=== PATIENT | female | born 2000 | race Caucasian/White ===

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

== ENCOUNTER 2021-02-04 11:26 | Emergency (ER) | payer BC, OTHER ==
[2021-02-04 11:31] VITALS: RESP 18; TEMP 98.1
[2021-02-04] MEDS ORDERED: KETOROLAC 15 MG/ML 1 ML VIAL IM STA (11:52)
--- NOTE | 2021-02-04 12:22 | XR ---
EXAMINATION TYPE: XR hand complete LT DATE OF EXAM: 02/04/2021 CLINICAL HISTORY: Anterior pain and swelling after dog bite injury TECHNIQUE: Frontal, lateral and oblique images of the left hand are obtained. COMPARISON: None. FINDINGS: There is no acute fracture/dislocation evident in the left hand. The joint spaces in the l eft hand appear within normal limits. On the oblique image there is density between the mid shaft of the second and third metacarpals could reflect soft tissue foreign body, this is not as well identifi ed on additional views. Correlate clinically. IMPRESSION: As above.
[2021-02-04] MEDS ORDERED: BACITRACIN OINT 1 EACH PACKET TOPICAL ONE (12:40)
--- NOTE | 2021-02-04 12:40 | ED ---
Animal Bite HPI - General Chief Complaint: Animal Bite Stated Complaint: [facility]-dog bite Time Seen by Provider: 02/04/21 11:45 Source: patient Mode of arrival: ambulatory Limitations: no limitations - History of Present Illness Initial Comments: Patient is a 20-year-old female presenting to the emergency department for a dog bite wound. 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 She is up-to-date with her tetanus shot, the dog has been put down, however the dog did have updated rabies vaccine on file. Patient has no further complaints at this time. - Related Data Home Medications Medication Instructions Recorded Confirmed Ferrous Sulfate [Feosol] 325 mg PO HS 11/28/18 12/26/19 Venlafaxine HCl [Effexor XR] 75 mg PO HS 11/28/18 12/26/19 Cetirizine HCl [Zyrtec] 10 mg PO HS 12/17/19 12/26/19 Phentermine HCl [Adipex-P] 37.5 mg PO DAILY 12/17/19 12/26/19 metFORMIN HCL ER [Glucophage Xr] 1,000 mg PO HS 12/17/19 12/26/19 Albuterol Sulfate [Proair Hfa] 1 - 2 puff INHALATION Q6HR PRN 12/26/19 12/26/19 Ketorolac [Toradol] 10 mg PO Q8HR PRN 12/26/19 12/26/19 traMADol HCL [Ultram] 50 mg PO Q8HR PRN 12/26/19 12/26/19 Previous Rx's Medication Instructions Recorded Dicyclomine [Bentyl] 20 mg PO TID #30 tablet 12/22/19 Ondansetron Odt [Zofran Odt] 4 mg PO Q8HR PRN #10 tab 12/22/19 Docusate [Colace] 100 mg PO BID #20 capsule 12/29/19 HYDROcodone/APAP 5-325MG [[place] 1 tab PO Q6HR PRN #10 tab 12/29/19 5-325] Doxycycline Monohydrate [Monodox] 100 mg PO BID 7 Days #14 cap 02/04/21 Ketorolac [Toradol] 10 mg PO Q8HR #10 tab 02/04/21 Allergies Allergy/AdvReac Type Severity Reaction Status Date / Time cephalexin [From Keflex] Allergy Rash/Hives Verified 02/04/21 11:30 Penicillins Allergy Rash/Hives Verified 02/04/21 11:30 latex AdvReac Mild Itching Verified 02/04/21 11:30 adhesive tape AdvReac PAPER & Verified 02/04/21 11:30 PLASTIC IRRITATE SKIN AND ADHESIVE PEELS SKIN. Review of Systems ROS Statement: Those systems with pertinent positive or pertinent negative responses have been documented in the HPI. ROS Other: All systems not noted in ROS Statement are negative. Past Medical History Additional Past Medical History / Comment(s): PCOS, MENSTRUAL PERIODS HEAVY AND PAINFUL, "MILD ASTHMA", CHRONIC BACK PAIN-SEES CHIROPRACTOR., ANEMIA. , STATES HAVING DIARRHEA, NAUSEA AND ABD PAIN. History of Any Multi-Drug Resistant Organisms: None Reported Past Surgical History: Orthopedic Surgery Additional Past Surgical History / Comment(s): bone removed from ankle (10 or 11 yrs old) Past Anesthesia/Blood Transfusion Reactions: No Reported Reaction, Motion Sickness Additional Past Anesthesia/Blood Transfusion Reaction / Comment(s): RARE MOTION SICKNESS Past Psychological History: Anxiety Smoking Status: Never smoker Past Alcohol Use History: None Reported Past Drug Use History: None Reported - Past Family History Mother Family Medical History: No Reported History General Exam - General Exam Comments Initial Comments: GENERAL: Patient is well-developed and well-nourished. Patient is nontoxic and in no acute distress. HEAD: Atraumatic, normocephalic. EYES: Pupils equal round and reactive to light, extraocular movements intact, sclera anicteric, conjunctiva are normal. Eyelids were unremarkable. ENT: TMs normal, nares patent, oropharynx clear without exudates. Moist mucous membranes. NECK: Normal range of motion, supple without lymphadenopathy or JVD. LUNGS: Unlabored respirations. Breath sounds clear to auscultation bilaterally and equal. No wheezes rales or rhonchi. HEART: Regular rate and rhythm without murmurs, rubs or gallops. ABDOMEN: Soft, nontender, normoactive bowel sounds. No guarding, no rebound. No masses appreciated. : Deferred MUSCULOSKELETAL: Normal extremities with adequate strength and normal range of motion, no pitting or edema. No clubbing or cyanosis. NEUROLOGICAL: Patient is alert and oriented x 3. Motor and sensory are also intact. Cranial nerves II through XII grossly intact. Symmetrical smile. Normal speech, normal gait. PSYCH: Normal mood, normal affect. SKIN: Warm, Dry, normal turgor, no rashes. Patient has a 0.5cm puncture wound on her left hand, palmar aspect. This is not gaping, no sutures required. Patient also has a small superficial 1cm abrasion to the right index finger. There is no active bleeding at this time. Limitations: no limitations Course Vital Signs 02/04/21 02/04/21 11:28 13:11 Temperature 98.1 F Pulse Rate 88 76 Respiratory 18 18 Rate Blood Pressure 149/101 121/78 O2 Sat by Pulse 100 100 Oximetry Medical Decision Making - Medical Decision Making Patient is a 20-year-old female here after a dog bite to her left hand as well as her right hand. Patient has a 0.5 cm puncture wound on her left hand, palmar aspect. This is not requiring sutures, no active bleeding. She also has a small superficial abrasion to the right index finger, about one centimeters in length. She is tetanus vaccine is up-to-date, the dog's rabies were up-to-date as well. Patient's wound was cleaned, bandaged with topical antibiotic. I will start patient on doxycycline and also give her some Toradol. We discussed wound care. Patient is stable for discharge. Patient is in agreement with this plan of care. Return parameters were discussed with the patient and they verbalized understanding. Case discussed with Dr. Espinoza. Disposition Clinical Impression: Dog bite, Dog bite of left hand Disposition: HOME SELF-CARE Condition: Stable Instructions (If sedation given, give patient instructions): Animal Bite (ED) Additional Instructions: Please return to the Emergency Department if symptoms worsen or any other concerns. Wound clean and dry as discussed. Apply topical antibiotic twice daily. Take oral antibiotics as prescribed, may also take Toradol for severe pain. Follow-up with your regular doctor as needed. Prescriptions: Doxycycline Monohydrate [Monodox] 100 mg PO BID 7 Days #14 cap Ketorolac [Toradol] 10 mg PO Q8HR #10 tab Is patient prescribed a controlled substance at d/c from ED?: No Referrals: Nalini Graves DO [Primary Care Provider] - 1-2 days
[2021-02-04 13:12] VITALS: BP 121/78; PULSE 76
== END 2021-02-04 13:19 | disposition home or self-care (01) ==
LOC: EC 11:26
DX: S61.432A Puncture wound without foreign body of left hand, initial encounter (principal); S60.410A Abrasion of right index finger, initial encounter; F41.9 Anxiety disorder, unspecified; Z79.84 Long term (current) use of oral hypoglycemic drugs; Z79.899 Other long term (current) drug therapy; Z88.0 Allergy status to penicillin; Z88.1 Allergy status to other antibiotic agents; Z91.040 Latex allergy status; Z91.048 Other nonmedicinal substance allergy status; W54.0XXA Bitten by dog, initial encounter
CPT/HCPCS: 73130; 99283; 96372; J1885

== ENCOUNTER 2021-03-27 19:14 | Emergency (ER) | payer OTHER ==
[2021-03-27 19:22] VITALS: TEMP 98.2
[2021-03-27] MEDS ORDERED: predniSONE 20 MG TAB PO STA (19:47)
--- NOTE | 2021-03-27 20:03 | XR ---
EXAMINATION TYPE: XR chest 2V DATE OF EXAM: 03/27/2021 COMPARISON: NONE HISTORY: 12/17/2019 TECHNIQUE: 2 views FINDINGS: Heart and mediastinum are normal. Lungs are clear. Diaphragm is normal. Bony thorax appears normal. IMPRESSION: Normal chest. No change.
--- NOTE | 2021-03-27 20:32 | ED ---
General Adult HPI - General Chief complaint: Shortness of Breath Stated complaint: sob/cough/fever Time Seen by Provider: 03/27/21 19:24 Source: patient Mode of arrival: ambulatory Limitations: no limitations - History of Present Illness Initial comments: 20-year-old female presenting for cough shortness of breath. Patient states she's had a cough since Sunday. Patient states the cough keeps her up at night and her ribs feel sore from coughing so much. Patient denies any leg swelling hemoptysis history of DVT pulmonary embolism recent surgeries or immobilization fractures she denies any history of cancer she denies any exogenous hormone use or control. Pt states she occasionally vapes. pt denies additional complaints/concerns. Remaining ROS (-). Pt appears well nontoxic in no distress. - Related Data Home Medications Medication Instructions Recorded Confirmed Cetirizine HCl [Zyrtec] 10 mg PO HS 12/17/19 03/27/21 metFORMIN HCL ER [Glucophage Xr] 1,000 mg PO HS 12/17/19 03/27/21 Albuterol Sulfate [Proair Hfa] 1 - 2 puff INHALATION RT-Q6H PRN 12/26/19 03/27/21 Venlafaxine HCl [Effexor XR] 150 mg PO HS 03/27/21 03/27/21 Previous Rx's Medication Instructions Recorded Albuterol Inhaler [Ventolin Hfa 1 puff INHALATION RT-QID 30 Days 03/27/21 Inhaler] #1 puff predniSONE 50 mg PO DAILY 4 Days #4 tab 03/27/21 Allergies Allergy/AdvReac Type Severity Reaction Status Date / Time cephalexin [From Keflex] Allergy Rash/Hives Verified 03/27/21 20:23 Penicillins Allergy Rash/Hives Verified 03/27/21 20:23 latex AdvReac Mild Itching Verified 03/27/21 20:23 adhesive tape AdvReac PAPER & Verified 03/27/21 20:23 PLASTIC IRRITATE SKIN AND ADHESIVE PEELS SKIN. Review of Systems ROS Statement: Those systems with pertinent positive or pertinent negative responses have been documented in the HPI. ROS Other: All systems not noted in ROS Statement are negative. Past Medical History Additional Past Medical History / Comment(s): PCOS, MENSTRUAL PERIODS HEAVY AND PAINFUL, "MILD ASTHMA", CHRONIC BACK PAIN-SEES CHIROPRACTOR., ANEMIA. , STATES HAVING DIARRHEA, NAUSEA AND ABD PAIN. History of Any Multi-Drug Resistant Organisms: None Reported Past Surgical History: Cholecystectomy, Orthopedic Surgery Additional Past Surgical History / Comment(s): bone removed from ankle (10 or 11 yrs old) Past Anesthesia/Blood Transfusion Reactions: No Reported Reaction, Motion Sickness Additional Past Anesthesia/Blood Transfusion Reaction / Comment(s): RARE MOTION SICKNESS Past Psychological History: Anxiety Smoking Status: Vaper Past Alcohol Use History: None Reported Past Drug Use History: None Reported - Past Family History Mother Family Medical History: No Reported History General Exam - General Exam Comments Initial Comments: General: The patient is awake and alert, in no distress, and does not appear acutely ill. Eye: Pupils are equal, round and reactive to light, extra-ocular movements are intact. No nystagmus. There is normal conjunctiva bilaterally. No signs of icterus. Ears, nose, mouth and throat: There are moist mucous membranes and no oral lesions. Neck: The neck is supple, there is no tenderness or JVD. Cardiovascular: There is a regular rate and rhythm. No murmur, rub or gallop is appreciated. Respiratory: Lungs are clear to auscultation, respirations are non-labored, breath sounds are equal. No wheezes, stridor, rales, or rhonchi. No retractions. No abdominal breathing. Dry cough Musculoskeletal: Normal ROM, no tenderness. Strength 5/5. Sensation intact. Pulses equal bilaterally 2+. Neurological: A&O x 3. CN II-XII intact, There are no obvious motor or sensory deficits. Coordination appears grossly intact. Speech is normal. Skin: Skin is warm and dry and no rashes or lesions are noted. Psychiatric: Cooperative, appropriate mood & affect, normal judgment. Limitations: no limitations Course Vital Signs 03/27/21 03/27/21 03/27/21 19:15 19:58 20:54 Temperature 98.2 F Pulse Rate 85 68 Respiratory 17 26 H 18 Rate Blood Pressure 125/88 132/98 O2 Sat by Pulse 98 98 Oximetry Medical Decision Making - Medical Decision Making CXR clear. lungs clear .obvious uRI symptoms. Covid (-) now x2. patient PERC (-) pt will be discharged on steroids and albuterol inhaler prn with suspected bronchitis. pt agreeable discharged appearing well. Dr Case agreeable to care plan. - Lab Data Lab Results 03/27/21 Range/Units 19:56 Coronavirus (PCR) Not Detected (Not Detectd) Disposition Clinical Impression: Cough, Dyspnea Disposition: HOME SELF-CARE Condition: Good Instructions (If sedation given, give patient instructions): Acute Bronchitis (ED) Additional Instructions: Please use medication as discussed. Please follow-up with family doctor in the next 2 days.. Please return to emergency room if the symptoms increase or worsen or for any other concerns. Prescriptions: predniSONE 50 mg PO DAILY 4 Days #4 tab Albuterol Inhaler [Ventolin Hfa Inhaler] 1 puff INHALATION RT-QID 30 Days #1 puff Is patient prescribed a controlled substance at d/c from ED?: No Referrals: Nalini Graves DO [Primary Care Provider] - 1-2 days Time of Disposition: 20:31
[2021-03-27 20:55] VITALS: BP 132/98; PULSE 68; RESP 18
== END 2021-03-27 20:55 | disposition home or self-care (01) ==
LOC: EC 19:14
DX: R05 Cough (principal); R06.02 Shortness of breath; R50.9 Fever, unspecified; F41.9 Anxiety disorder, unspecified; F17.290 Nicotine dependence, other tobacco product, uncomplicated; J45.909 Unspecified asthma, uncomplicated; Z20.822 Contact with and (suspected) exposure to COVID-19; Z88.0 Allergy status to penicillin; Z79.51 Long term (current) use of inhaled steroids
CPT/HCPCS: 87635; 71046; 99285; J7512

== ENCOUNTER → 2021-12-14 | Outpatient (CLI) | payer OTHER, BC ==
--- NOTE | 2021-12-14 17:29 | XR ---
EXAMINATION TYPE: XR elbow limited LT DATE OF EXAM: 12/14/2021 COMPARISON: NONE HISTORY: 21 years Female. STUDY INDICATION GIVEN: Left elbow pain . TECHNIQUE: Frontal and lateral radiographs of the left elbow IMPRESSION: No acute osseous or articular abnormalities appreciated. Specifically no joint effusion, malalignment, acute fracture or dislocation appreciated. No aggressive osseous lesion seen. No significant soft tissue swelling appreciated.
== END | disposition home or self-care (01) ==
LOC: RADXRMAIN 17:07
PROVIDERS: ATTEND Family Medicine
DX: M25.522 Pain in left elbow (principal)

== ENCOUNTER → 2022-02-01 | Outpatient (CLI) | payer BC, OTHER ==
--- NOTE | 2022-02-02 07:18 | US ---
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 Patient states that during physi uzma exam, thyroid was felt to be enlarged. Not on thyroid meds. GLAND SIZE: Right Lobe: 4.6 x 1.7 x 1.7 cm Overall Parenchyma: homogenous Left Lobe: 4.1 x 1.4 x 1.6 cm Overall Parenchyma: homogeneous Isthmus Thickness: 0.4 cm NODULES RIGHT: # of nodules measured on right: 0 LEFT: # of nodules measured on left: 0 ISTHMUS: # of nodules measured in the isthmus: 0 Bilateral neck scanned, no evidence of lymphadenopathy. IMPRESSION: No distinct abnormality appreciated at this time.
== END | disposition home or self-care (01) ==
LOC: RADUSWWP 16:46
PROVIDERS: ATTEND Family Medicine
DX: E01.0 Iodine-deficiency related diffuse (endemic) goiter (principal)
CPT/HCPCS: 76536

== ENCOUNTER → 2022-02-10 | Outpatient (CLI) | payer BC, OTHER ==
--- NOTE | 2022-02-10 08:47 | US ---
EXAMINATION TYPE: US abdomen limited DATE OF EXAM: 02/10/2022 COMPARISON: Ultrasound abdomen Limited December 21, 2019 CLINICAL HISTORY: R10.13 EPIGASTRIC PAIN, R11.0 NAUSEA, R74.01. Nausea and RUQ pain for the past 1-2 months, history of cholecystectomy. EXAM MEASUREMENTS: Liver Length: 17.0 cm Gallbladder Wall: Surgically absent cm CBD: 0.5 cm Right Kidney: 11.8 x 5.2 x 5.3 cm Pancreas: Obscured by bowel gas Liver: Increased attenuation, decreased visualization of vessels suggestive of fatty infiltrate Gallbladder: Surgically absent Evidence for sonographic Ventura's sign: No CBD: wnl Right Kidney: No hydronephrosis or masses seen Increased attenuation, liver is upper limits in size, history of cholecystectomy. Suboptimal evaluation of the pancreas due to overlying bowel gas on today's study. No aneurysm in the proximal abdominal aorta. Visualized liver remains heterogeneously hyperechoic similar to prior. No surrounding ascites. No biliary dilatation. Gallbladder surgically absent. Evaluation for focal bernadine s in the liver suboptimal due to the heterogeneity. No right-sided hydronephrosis. IMPRESSION: Heterogeneous hyperechoic appearance of liver consistent with diffuse fatty infiltration and/or underlying hepatocellular disease. No acute findings are evident. Suboptimal study.
== END | disposition home or self-care (01) ==
LOC: RADUSWWP 07:54
PROVIDERS: ATTEND Family Medicine
DX: R10.13 Epigastric pain (principal); R11.0 Nausea; R74.01 Elevation of levels of liver transaminase levels
CPT/HCPCS: 76705

== ENCOUNTER → 2022-02-16 | Day surgery (SDC) | payer BC, OTHER ==
[2022-02-15 08:46] VITALS: BMI 38.7
[~2022-02-16] MED LIST changes: -BUPIVACAINE (PF) 0.25% 30 ML VIAL SQ ONE; -CLINDAMYCIN 900 MG in DEXTROSE 5% IN WATER 50 ML IVPB ONE; -DEXAMETHASONE SOD PHOSPHATE 10 MG/ML 1 ML VIAL IV ONE; -GLYCOPYRROLATE 0.2 MG/ML 2 ML VIAL ONE; -HEPARIN SODIUM,PORCINE 5,000 UNIT/ML 1 ML VIAL SQ ONE; -HYDROcodone/APAP 5-325MG 1 EACH TAB PO ONE; -KETOROLAC 30 MG/ML 1 ML VIAL ONE; -LIDOCAINE 1% 20 ML VIAL (10MG/ML) FOR IV START INTRADERMA ONE; -MIDAZOLAM 2 MG/2 ML VIAL IV PRN; -MIDAZOLAM 2 MG/2 ML VIAL ONE; -NEOSTIGMINE 1 MG/ML 10 ML VIAL ONE; -ONDANSETRON 4 MG/2 ML VIAL IVP ONE; -ROCURONIUM BROMIDE 10 MG/ML 5 ML VIAL IV ONE; -SCOPOLAMINE 1.5MG/72HR PATCH TRANSDERM ONE; -SIMETHICONE 80 MG CHEWABLE PO ONE; -SIMETHICONE 80 MG CHEWABLE PO STA; -SUCCINYLCHOLINE CHLORIDE 100 MG/5 ML SYR IV ONE; -diphenhydrAMINE 50 MG/ML 1 ML VIAL IVP ONE; -ePHEDrine SULFATE/0.9% NACL/PF 50 MG/5 ML SYRINGE IV ONE; -fentaNYL (PF) 50 MCG/ML 2 ML AMP ONE
[2022-02-16 09:56] VITALS: TEMP 97.4
[2022-02-16 10:02] LABS: Glucose,Whole Blood 90 mg/dL (75-99)
--- NOTE | 2022-02-16 10:12 | P.GSHP ---
History of Present Illness H&P Date: 02/16/22 Chief Complaint: GERD This is a 21-year-old female who presents today for EGD. Patient has had complaints of GERD. Past Medical History Past Medical History: GERD/Reflux Additional Past Medical History / Comment(s): PCOS, MENSTRUAL PERIODS HEAVY AND PAINFUL, "MILD ASTHMA", CHRONIC BACK PAIN, STATES HAVING heartburn,AND ABD PAIN. History of Any Multi-Drug Resistant Organisms: None Reported Past Surgical History: Cholecystectomy, Orthopedic Surgery Additional Past Surgical History / Comment(s): bone removed from ankle (10 or 11 yrs old) Past Anesthesia/Blood Transfusion Reactions: No Reported Reaction Additional Past Anesthesia/Blood Transfusion Reaction / Comment(s): RARE MOTION SICKNESS Smoking Status: Vaper - Past Family History Mother Family Medical History: No Reported History Medications and Allergies Home Medications Medication Instructions Recorded Confirmed Type Cetirizine HCl [Zyrtec] 10 mg PO HS 12/17/19 02/16/22 History metFORMIN HCL ER [Glucophage Xr] 1,000 mg PO DAILY 12/17/19 02/16/22 History Albuterol Sulfate [Proair Hfa] 1 - 2 puff INHALATION RT-Q6H PRN 12/26/19 02/16/22 History Albuterol Inhaler [Ventolin Hfa 1 puff INHALATION RT-QID 30 Days 03/27/21 02/16/22 Rx Inhaler] #1 puff Venlafaxine HCl [Effexor XR] 150 mg PO HS 03/27/21 02/16/22 History Spironolactone 25 mg PO DAILY 02/15/22 02/16/22 History Allergies Allergy/AdvReac Type Severity Reaction Status Date / Time cephalexin [From Keflex] Allergy Rash/Hives Verified 02/16/22 09:50 Penicillins Allergy Rash/Hives Verified 02/16/22 09:50 latex AdvReac Mild Itching Verified 02/16/22 09:50 adhesive tape AdvReac PAPER & Verified 02/16/22 09:50 PLASTIC IRRITATE SKIN AND ADHESIVE PEELS SKIN. Surgical - Exam Vital Signs Temp Pulse Resp BP Pulse Ox 97.4 F L 84 18 125/71 97 02/16/22 09:55 02/16/22 09:55 02/16/22 09:55 02/16/22 09:55 02/16/22 09:55 - General well developed, well nourished, no distress - Eyes PERRL - ENT normal pinna, normal nares - Neck no masses - Respiratory normal expansion - Cardiovascular Rhythm: regular - Abdomen Abdomen: soft, non tender Assessment and Plan Assessment: GERD. We'll perform EGD.
--- NOTE | 2022-02-16 10:26 | P.OP ---
Date of Procedure: 02/16/22 Preoperative Diagnosis: GERD Postoperative Diagnosis: Antral gastritis Procedure(s) Performed: EGD Anesthesia: MAC Surgeon: Oleg Becker Pathology: other (Antrum) Condition: stable Disposition: PACU Description of Procedure: The patient's placed on the endoscopy table in the lateral position. She rece ived IV sedation. The gastroscope placed oropharynx passed in the esophagus into the stomach. The scope was then placed through the pylorus. The first and second portion of the duodenum appeared normal. The scope was then brought back the antrum this was mildly inflamed. A biopsies was performed. Scope was then retroflexed and remainder the stomach appeared normal. There was no significant hiatal hernia. The GE junction was at 40 cm. The distal esophagus appeared normal. The proximal esophagus appeared normal. Scope withdrawn for patient.
[2022-02-16 10:31] VITALS: RESP 16
[2022-02-16 10:43] VITALS: BP 124/84; PULSE 78
== END | disposition home or self-care (01) ==
LOC: ORWHC2ENDO 09:07
PROVIDERS: ATTEND Surgery
DX: K29.50 Unspecified chronic gastritis without bleeding (principal); K21.9 Gastro-esophageal reflux disease without esophagitis; E28.2 Polycystic ovarian syndrome; J45.909 Unspecified asthma, uncomplicated; G89.29 Other chronic pain; M54.9 Dorsalgia, unspecified; N92.0 Excessive and frequent menstruation with regular cycle; F17.200 Nicotine dependence, unspecified, uncomplicated; F32.A Depression, unspecified; Z79.899 Other long term (current) drug therapy; Z79.84 Long term (current) use of oral hypoglycemic drugs; Z88.1 Allergy status to other antibiotic agents; Z91.040 Latex allergy status; Z88.0 Allergy status to penicillin; Z91.09 Other allergy status, other than to drugs and biological substances; Z90.49 Acquired absence of other specified parts of digestive tract; Z98.890 Other specified postprocedural states
CPT/HCPCS: 81025; 88305; 43239; J2001; J2704

== ENCOUNTER 2022-03-30 11:34 | Emergency (ER) | payer BC, OTHER ==
[2022-03-30 12:53] VITALS: BP 112/79; PULSE 87; RESP 18; TEMP 98.1
== END 2022-03-30 14:30 | disposition left against medical advice (07) ==
LOC: EC 11:34
DX: Z53.21 Procedure and treatment not carried out due to patient leaving prior to being seen by health care provider (principal)
CPT/HCPCS: 87635

== ENCOUNTER 2022-10-20 17:07 | Emergency (ER) | payer BC, OTHER ==
[2022-10-20] MEDS ORDERED: SODIUM CHLORIDE 0.9% 1,000 ML IV STA (21:53)
--- NOTE | 2022-10-20 21:57 | ED ---
General Adult HPI - General Chief complaint: Abdominal Pain Stated complaint: Hematuria,Sent by PCP Time Seen by Provider: 10/20/22 21:27 Source: patient, RN notes reviewed Mode of arrival: ambulatory Limitations: no limitations - History of Present Illness Initial comments: 22-year-old female presents to the emergency Department with complaints of right flank pain, onset 4 days prior to arrival. Patient described the pain as a throbbing discomfort that waxes and wanes. There are no aggravating or alleviating factors. Patient states she took Azo prior to arrival with improvement. Reports some blood in urine today. Also complains of constipati on. States she has been taking. He'll daily for the last week with minimal output. States she is drinking less water, but otherwise oral intake is unchanged. Denies fever, chills, headache, dizziness, chest pain, shortness of breath, nausea, vomiting, and diarrhea. - Related Data Home Medications Medication Instructions Recorded Confirmed metFORMIN HCL ER [Glucophage Xr] 1,000 mg PO DAILY 12/17/19 10/20/22 Venlafaxine HCl [Effexor XR] 150 mg PO DAILY 03/27/21 10/20/22 Famotidine [Pepcid] 20 mg PO BID 10/20/22 10/20/22 Levothyroxine Sodium [Synthroid] 25 mcg PO DAILY 10/20/22 10/20/22 Previous Rx's Medication Instructions Recorded Ibuprofen [Motrin] 600 mg PO Q8HR PRN #20 tab 10/20/22 Phenazopyridine [Pyridium] 200 mg PO TID PRN #6 tablet 10/20/22 Sulfamethox-Tmp 800-160Mg [Bactrim 1 each PO Q12HR 5 Days #10 tab 10/20/22 Ds] Allergies Allergy/AdvReac Type Severity Reaction Status Date / Time amoxicillin Allergy Rash/Hives Verified 10/20/22 22:46 all over cephalexin [From Keflex] Allergy Rash/Hives Verified 10/20/22 22:46 Penicillins Allergy Rash/Hives Verified 10/20/22 22:46 latex AdvReac Mild Itching Verified 10/20/22 22:46 adhesive tape AdvReac PAPER & Verified 10/20/22 22:46 PLASTIC IRRITATE SKIN AND ADHESIVE PEELS SKIN. clindamycin [From Cleocin] AdvReac Nausea & Verified 10/20/22 22:48 Vomiting Review of Systems ROS Statement: Those systems with pertinent positive or pertinent negative responses have been documented in the HPI. ROS Other: All systems not noted in ROS Statement are negative. Past Medical History Additional Past Medical History / Comment(s): PCOS, MENSTRUAL PERIODS HEAVY AND PAINFUL, "MILD ASTHMA", CHRONIC BACK PAIN-SEES CHIROPRACTOR., ANEMIA. , STATES HAVING DIARRHEA, NAUSEA AND ABD PAIN. History of Any Multi-Drug Resistant Organisms: None Reported Past Surgical History: Cholecystectomy, Orthopedic Surgery Additional Past Surgical History / Comment(s): bone removed from ankle (10 or 11 yrs old) Past Anesthesia/Blood Transfusion Reactions: No Reported Reaction, Motion Sickness Additional Past Anesthesia/Blood Transfusion Reaction / Comment(s): RARE MOTION SICKNESS Past Psychological History: Anxiety Smoking Status: Vaper Past Alcohol Use History: None Reported Past Drug Use History: None Reported - Past Family History Mother Family Medical History: No Reported History General Exam Limitations: no limitations General appearance: alert, in no apparent distress Respiratory exam: Present: normal lung sounds bilaterally. Absent: respiratory distress, wheezes, rales, rhonchi, stridor Cardiovascular Exam: Present: regular rate, normal rhythm, normal heart sounds. Absent: systolic murmur, diastolic murmur, rubs, gallop, clicks GI/Abdominal exam: Present: soft, normal bowel sounds. Absent: distended, tenderness, guarding, rebound, rigid Back exam: Absent: CVA tenderness (R), CVA tenderness (L) Neurological exam: Present: alert, oriented X3, CN II-XII intact Course Vital Signs 10/20/22 10/20/22 17:33 23:23 Temperature 98.3 F 97.5 F L Pulse Rate 86 80 Respiratory 20 19 Rate Blood Pressure 131/62 130/87 O2 Sat by Pulse 98 97 Oximetry Medical Decision Making - Medical Decision Making 22-year-old female with a four-day history of right flank and low back pain presents to emergency Department with complaints of hematuria, onset today. Upon exam, patient is well-appearing and in no acute distress. Physical exam findings are unremarkable. Vital Signs are stable. She does complain of constipation, though has been having soft stool daily. KUB x-ray was unremarkable; no evidence for obstruction or constipation. Laboratory studies were obtained including urinalysis which shows 6 urine RBCs/hpf, moderate amount of bacteria, and is nitrite positive. Patient will be started on Bactrim for UTI and instructed to follow up with her PCP for a recheck next week. Prescribed Pyridium for dysuria and Motrin for back pain. Return parameters discussed in detail. Patient verbalizes understanding and agrees with this plan. Attending: Ronni - Lab Data Result diagrams: 10/20/22 22:15 10/20/22 22:15 Lab Results 10/20/22 10/20/22 10/20/22 Range/Units 21:35 21:35 22:15 WBC 8.8 (3.8-10.6) k/uL RBC 4.58 (3.80-5.40) m/uL Hgb 13.2 (11.4-16.0) gm/dL Hct 38.9 (34.0-46.0) % MCV 84.9 (80.0-100.0) fL MCH 28.8 (25.0-35.0) pg MCHC 34.0 (31.0-37.0) g/dL RDW 12.9 (11.5-15.5) % Plt Count 323 (150-450) k/uL MPV 8.1 Neutrophils % 52 % Lymphocytes % 35 % Monocytes % 9 % Eosinophils % 1 % Basophils % 1 % Neutrophils # 4.5 (1.3-7.7) k/uL Lymphocytes # 3.1 (1.0-4.8) k/uL Monocytes # 0.8 (0-1.0) k/uL Eosinophils # 0.1 (0-0.7) k/uL Basophils # 0.1 (0-0.2) k/uL Sodium (137-145) mmol/L Potassium (3.5-5.1) mmol/L Chloride (98-107) mmol/L Carbon Dioxide (22-30) mmol/L Anion Gap mmol/L BUN (7-17) mg/dL Creatinine (0.52-1.04) mg/dL Est GFR (CKD-EPI)AfAm (>60 ml/min/1.73 sqM) Est GFR (CKD-EPI)NonAf (>60 ml/min/1.73 sqM) Glucose (74-99) mg/dL Calcium (8.4-10.2) mg/dL Total Bilirubin (0.2-1.3) mg/dL AST (14-36) U/L ALT (4-34) U/L Alkaline Phosphatase (38-126) U/L Total Protein (6.3-8.2) g/dL Albumin (3.5-5.0) g/dL Urine Color Dark Brown Urine Appearance Clear (Clear) Urine pH 5.5 (5.0-8.0) Ur Specific Hammond 1.030 (1.001-1.035) Urine Protein Negative (Negative) Urine Glucose (UA) Negative (Negative) Urine Ketones Negative (Negative) Urine Blood Trace H (Negative) Urine Nitrite Positive H (Negative) Urine Bilirubin 1+ H (Negative) Urine Urobilinogen 2.0 (<2.0) mg/dL Ur Leukocyte Esterase Negative (Negative) Urine RBC 6 H (0-5) /hpf Urine WBC 3 (0-5) /hpf Ur Squamous Epith Cells 1 (0-4) /hpf Urine Bacteria Occasional H (None) /hpf Hyaline Casts 1 (0-2) /lpf Urine Mucus Occasional H (None) /hpf Urine HCG, Qual Not Detected (Not Detectd) 10/20/22 Range/Units 22:15 WBC (3.8-10.6) k/uL RBC (3.80-5.40) m/uL Hgb (11.4-16.0) gm/dL Hct (34.0-46.0) % MCV (80.0-100.0) fL MCH (25.0-35.0) pg MCHC (31.0-37.0) g/dL RDW (11.5-15.5) % Plt Count (150-450) k/uL MPV Neutrophils % % Lymphocytes % % Monocytes % % Eosinophils % % Basophils % % Neutrophils # (1.3-7.7) k/uL Lymphocytes # (1.0-4.8) k/uL Monocytes # (0-1.0) k/uL Eosinophils # (0-0.7) k/uL Basophils # (0-0.2) k/uL Sodium 137 (137-145) mmol/L Potassium 4.0 (3.5-5.1) mmol/L Chloride 105 (98-107) mmol/L Carbon Dioxide 25 (22-30) mmol/L Anion Gap 7 mmol/L BUN 11 (7-17) mg/dL Creatinine 0.56 (0.52-1.04) mg/dL Est GFR (CKD-EPI)AfAm >90 (>60 ml/min/1.73 sqM) Est GFR (CKD-EPI)NonAf >90 (>60 ml/min/1.73 sqM) Glucose 99 (74-99) mg/dL Calcium 9.5 (8.4-10.2) mg/dL Total Bilirubin 0.2 (0.2-1.3) mg/dL AST 21 (14-36) U/L ALT 22 (4-34) U/L Alkaline Phosphatase 78 (38-126) U/L Total Protein 7.1 (6.3-8.2) g/dL Albumin 4.4 (3.5-5.0) g/dL Urine Color Urine Appearance (Clear) Urine pH (5.0-8.0) Ur Specific Hammond (1.001-1.035) Urine Protein (Negative) Urine Glucose (UA) (Negative) Urine Ketones (Negative) Urine Blood (Negative) Urine Nitrite (Negative) Urine Bilirubin (Negative) Urine Urobilinogen (<2.0) mg/dL Ur Leukocyte Esterase (Negative) Urine RBC (0-5) /hpf Urine WBC (0-5) /hpf Ur Squamous Epith Cells (0-4) /hpf Urine Bacteria (None) /hpf Hyaline Casts (0-2) /lpf Urine Mucus (None) /hpf Urine HCG, Qual (Not Detectd) - Radiology Data Radiology results: report reviewed, image reviewed KUB x-ray was obtained. Report was reviewed in its entirety. Impression per Dr. Sam is nonacute abdomen. No adverse change. Disposition Clinical Impression: Acute cystitis Disposition: HOME SELF-CARE Condition: Stable Instructions (If sedation given, give patient instructions): Urinary Tract Infection in Women (ED) Additional Instructions: Take antibiotic as directed. Prescribed Pyridium for urinary discomfort. Motrin for flank and back pain. Increase your intake of water. Avoid caffeine and sugary drinks. Void frequently. Follow-up with your PCP for a recheck next week. Return to the emergency department with any new, worsening or concerning symptoms. Prescriptions: Sulfamethox-Tmp 800-160Mg [Bactrim Ds] 1 each PO Q12HR 5 Days #10 tab Ibuprofen [Motrin] 600 mg PO Q8HR PRN #20 tab PRN Reason: Pain Phenazopyridine [Pyridium] 200 mg PO TID PRN #6 tablet PRN Reason: Pain Is patient prescribed a controlled substance at d/c from ED?: No Referrals: Nalini Graves DO [Primary Care Provider] - 1-2 days Time of Disposition: 22:59
[2022-10-20 22:16] LABS: Appearance,Urine Clear (Clear); Bacteria,Urine Occasional /hpf; Bilirubin,Urine 1+ (Negative); Blood,Urine Trace (Negative); Color,Urine Dark Brown; Glucose,Urine (UA) Negative (Negative); Hyaline Casts,Urine 1 /lpf (0-2); Ketones,Urine Negative (Negative); Leukocyte Esterase,Urine Negative (Negative); Mucus,Urine Occasional /hpf; Nitrite,Urine Positive (Negative); PH, Urine 5.5 (5.0-8.0); Protein,Urine Negative (Negative); RBC,Urine 6 /hpf (0-5); Squamous Epithelial Cell,Urine 1 /hpf (0-4); WBC,Urine 3 /hpf (0-5)
--- NOTE | 2022-10-20 22:24 | XR ---
EXAMINATION TYPE: XR KUB DATE OF EXAM: 10/20/2022 COMPARISON: 12/24/2019 HISTORY: Constipation TECHNIQUE: 2 views upright FINDINGS: There is no sign of intestinal obstruction or pneumoperitoneum. Fecal pattern is normal. No evidence of a mass. No pathologic calcification over the kidneys. IMPRESSION: Nonacute abdomen. No adverse change.
[2022-10-20 22:33] LABS: Basophils # (A) 0.1 k/uL (0-0.2); Basophils % (A) 1 %; Eosinophils # (A) 0.1 k/uL (0-0.7); Eosinophils % (A) 1 %; HCT 38.9 % (34.0-46.0); HGB 13.2 gm/dL (11.4-16.0); Lymphocytes # (A) 3.1 k/uL (1.0-4.8); Lymphocytes % (A) 35 %; MCH 28.8 pg (25.0-35.0); MCV 84.9 fL (80.0-100.0); Mean Platelet Volume 8.1; Monocytes # (A) 0.8 k/uL (0-1.0); Monocytes % (A) 9 %; Neutrophils # (A) 4.5 k/uL (1.3-7.7); Neutrophils % (A) 52 %; Platelet Count 323 k/uL (150-450); RBC 4.58 m/uL (3.80-5.40); RDW 12.9 % (11.5-15.5); WBC 8.8 k/uL (3.8-10.6)
[2022-10-20 22:51] LABS: ALT 22 U/L (4-34); AST 21 U/L (14-36); African American GFR (CKD) >90 (>60 ml/min/1.73 sqM); Albumin 4.4 g/dL (3.5-5.0); Alkaline Phosphatase 78 U/L (38-126); Anion Gap 7 mmol/L; Blood Urea Nitrogen 11 mg/dL (7-17); Calcium 9.5 mg/dL (8.4-10.2); Carbon Dioxide 25 mmol/L (22-30); Chloride 105 mmol/L (98-107); Glucose 99 mg/dL (74-99); Non-African American GFR(CKD) >90 (>60 ml/min/1.73 sqM); Sodium 137 mmol/L (137-145); Total Bilirubin 0.2 mg/dL (0.2-1.3); Total Protein 7.1 g/dL (6.3-8.2)
[2022-10-20] MEDS ORDERED: SULFAMETHOX-TMP 800-160MG 1 EACH TAB PO STA (22:52)
[2022-10-20 23:23] VITALS: BP 130/87; PULSE 80; RESP 19; TEMP 97.5
== END 2022-10-20 23:23 | disposition home or self-care (01) ==
LOC: EC 17:07
DX: N30.01 Acute cystitis with hematuria (principal); F41.9 Anxiety disorder, unspecified; F17.290 Nicotine dependence, other tobacco product, uncomplicated; Z88.0 Allergy status to penicillin; Z88.1 Allergy status to other antibiotic agents; Z91.040 Latex allergy status
CPT/HCPCS: 36415; 74018; 80053; 81001; 81025; 85025; 99284

== ENCOUNTER 2022-11-01 11:20 | Emergency (ER) | payer BC, OTHER ==
[2022-11-01 12:13] LABS: Appearance,Urine Cloudy (Clear); Bacteria,Urine Rare /hpf; Bilirubin,Urine Negative (Negative); Blood,Urine Negative (Negative); Color,Urine Yellow; Glucose,Urine (UA) Negative (Negative); Ketones,Urine Negative (Negative); Leukocyte Esterase,Urine Moderate (Negative); Mucus,Urine Moderate /hpf; Nitrite,Urine Negative (Negative); PH, Urine 6.5 (5.0-8.0); Protein,Urine Trace (Negative); Squamous Epithelial Cell,Urine 11 /hpf (0-4); Urobilinogen,Urine <2.0 mg/dL (<2.0); WBC,Urine 7 /hpf (0-5)
--- NOTE | 2022-11-01 15:16 | ED ---
General Adult HPI - General Chief complaint: Abdominal Pain Stated complaint: urogenital Time Seen by Provider: 11/01/22 14:59 Source: patient Mode of arrival: ambulatory Limitations: no limitations - History of Present Illness Initial comments: This 22-year-old female presents with a complaint of some urinary frequency urgency and dysuria. She's had occasional hematuria. She states that she had symptoms approximately one week ago and was treated in the emergency department and was prescribed Bactrim and this did seem to help with her symptomatology but then it later did come back as well. She has occasional suprapubic pain and occasional flank pain as well. She denies any fevers or chills. She denies any possibility of . No other complaints or modifying factors. - Related Data Home Medications Medication Instructions Recorded Confirmed metFORMIN HCL ER [Glucophage Xr] 1,000 mg PO DAILY 12/17/19 10/20/22 Venlafaxine HCl [Effexor XR] 150 mg PO DAILY 03/27/21 10/20/22 Famotidine [Pepcid] 20 mg PO BID 10/20/22 10/20/22 Levothyroxine Sodium [Synthroid] 25 mcg PO DAILY 10/20/22 10/20/22 Previous Rx's Medication Instructions Recorded Ibuprofen [Motrin] 600 mg PO Q8HR PRN #20 tab 10/20/22 Phenazopyridine [Pyridium] 200 mg PO TID PRN #6 tablet 10/20/22 Sulfamethox-Tmp 800-160Mg [Bactrim 1 each PO Q12HR 5 Days #10 tab 10/20/22 Ds] Ciprofloxacin HCl [Cipro] 500 mg PO Q12HR #20 tablet 11/01/22 Naproxen [Naprosyn] 500 mg PO BID PRN #20 tab 11/01/22 Phenazopyridine HCl [Pyridium] 200 mg PO TID #9 tab 11/01/22 Allergies Allergy/AdvReac Type Severity Reaction Status Date / Time amoxicillin Allergy Rash/Hives Verified 11/01/22 11:49 all over cephalexin [From Keflex] Allergy Rash/Hives Verified 11/01/22 11:49 Penicillins Allergy Rash/Hives Verified 11/01/22 11:49 latex AdvReac Mild Itching Verified 11/01/22 11:49 adhesive tape AdvReac PAPER & Verified 11/01/22 11:49 PLASTIC IRRITATE SKIN AND ADHESIVE PEELS SKIN. clindamycin [From Cleocin] AdvReac Nausea & Verified 11/01/22 11:49 Vomiting Review of Systems ROS Statement: Those systems with pertinent positive or pertinent negative responses have been documented in the HPI. ROS Other: All systems not noted in ROS Statement are negative. Past Medical History Additional Past Medical History / Comment(s): PCOS, MENSTRUAL PERIODS HEAVY AND PAINFUL, "MILD ASTHMA", CHRONIC BACK PAIN-SEES CHIROPRACTOR., ANEMIA. , STATES HAVING DIARRHEA, NAUSEA AND ABD PAIN. History of Any Multi-Drug Resistant Organisms: None Reported Past Surgical History: Cholecystectomy, Orthopedic Surgery Additional Past Surgical History / Comment(s): bone removed from ankle (10 or 11 yrs old) Past Anesthesia/Blood Transfusion Reactions: No Reported Reaction, Motion Sickness Additional Past Anesthesia/Blood Transfusion Reaction / Comment(s): RARE MOTION SICKNESS Past Psychological History: Anxiety Smoking Status: Vaper Past Alcohol Use History: None Reported Past Drug Use History: None Reported - Past Family History Mother Family Medical History: No Reported History General Exam - General Exam Comments Initial Comments: GENERAL: The patient is well nourished and well hydrated. VITAL SIGNS: Heart rate, blood pressure, respiratory rate reviewed as recorded in nurse's notes. EYES: Pupils are round and reactive. Extraocular movements are intact. No conjunctival / lid redness or swelling. ENT: No external evidence of injury, swelling, or ecchymosis. Airway is patent. Throat is clear. NECK: Nontender. No swelling or evidence of injury. No subcutaneous emphysema. Trachea is midline. No thyroid mass. HEART: Regular rate and rhythm. Good peripheral pulses. LUNGS/CHEST: Breath sounds clear and equal bilaterally. No rales, rhonchi, or wheezes. No ecchymosis, subcutaneous emphysema, or tenderness. ABDOMEN: Abdomen is soft with mild tenderness in the suprapubic region and bilateral flank. No palpable masses or organomegaly. No peritoneal signs. No abdominal wall swelling or ecchymosis. EXTREMITIES: No extremity tenderness. Normal muscle tone and function. No thoracolumbar tenderness. NEUROLOGIC: Sensation is grossly intact. Cranial nerve exam reveals face is symmetrical, tongue is midline, speech is clear. SKIN: No abrasions or ecchymosis is noted. No induration or masses noted. PSYCHIATRIC: Alert and oriented. Appropriate behavior and judgment. Limitations: no limitations Course Vital Signs 11/01/22 11/01/22 11:48 15:38 Temperature 98.5 F 98.1 F Pulse Rate 88 82 Respiratory 20 16 Rate Blood Pressure 117/78 116/68 O2 Sat by Pulse 100 97 Oximetry Medical Decision Making - Medical Decision Making The patient was seen and examined. Urinalysis is done and this does show evidence of urinary tract infection. It is felt as though she potentially may have early pyelonephritis as well. Additional antibiotics as well as Naprosyn and Pyridium are prescribed. It is felt as though she stable for discharge home. She looks well clinically. Return parameters are discussed. Close follow-up recommended. - Lab Data Lab Results 11/01/22 11/01/22 Range/Units 11:57 11:57 Urine Color Yellow Urine Appearance Cloudy H (Clear) Urine pH 6.5 (5.0-8.0) Ur Specific [place] 1.030 (1.001-1.035) Urine Protein Trace H (Negative) Urine Glucose (UA) Negative (Negative) Urine Ketones Negative (Negative) Urine Blood Negative (Negative) Urine Nitrite Negative (Negative) Urine Bilirubin Negative (Negative) Urine Urobilinogen <2.0 (<2.0) mg/dL Ur Leukocyte Esterase Moderate H (Negative) Urine WBC 7 H (0-5) /hpf Ur Squamous Epith Cells 11 H (0-4) /hpf Urine Bacteria Rare H (None) /hpf Urine Mucus Moderate H (None) /hpf Urine HCG, Qual Not Detected (Not Detectd) Disposition Clinical Impression: UTI (urinary tract infection), Pyelonephritis Disposition: HOME SELF-CARE Condition: Good Instructions (If sedation given, give patient instructions): Urinary Tract Infection in Women (ED), Kidney Infection (ED) Additional Instructions: Please also follow up with your urine cultures with your primary care in 3-5 days. Prescriptions: Ciprofloxacin HCl [Cipro] 500 mg PO Q12HR #20 tablet Naproxen [Naprosyn] 500 mg PO BID PRN #20 tab PRN Reason: Pain Phenazopyridine HCl [Pyridium] 200 mg PO TID #9 tab Is patient prescribed a controlled substance at d/c from ED?: No Referrals: Nalini Graves DO [Primary Care Provider] - 1-2 days Time of Disposition: 15:15
[2022-11-01 15:39] VITALS: BP 116/68; PULSE 82; RESP 16; TEMP 98.1
== END 2022-11-01 15:38 | disposition home or self-care (01) ==
LOC: EC 11:20
DX: N39.0 Urinary tract infection, site not specified (principal); N12 Tubulo-interstitial nephritis, not specified as acute or chronic; F41.9 Anxiety disorder, unspecified; F17.290 Nicotine dependence, other tobacco product, uncomplicated; Z88.0 Allergy status to penicillin; Z91.040 Latex allergy status; Z88.1 Allergy status to other antibiotic agents; Z91.048 Other nonmedicinal substance allergy status
CPT/HCPCS: 81001; 81025; 87086; 99284

== ENCOUNTER → 2023-04-30 | Outpatient (CLI) | payer OTHER ==
--- NOTE | 2023-04-30 08:56 | XR ---
EXAMINATION TYPE: XR hand limited LT DATE OF EXAM: 04/30/2023 CLINICAL HISTORY: pain TECHNIQUE: Frontal, lateral images of the left hand are obtained. COMPARISON: 02/04/21 FINDINGS: There is no acute fracture/dislocation evident. The joint spaces appear within normal limi ts. The overlying soft tissue appears unremarkable. IMPRESSION: There is no acute fracture or dislocation. ICD 10 NO FRACTURE, INITIAL EVALUATION
== END | disposition home or self-care (01) ==
LOC: RADXRMAIN 08:20
PROVIDERS: ATTEND Family Medicine
DX: M79.642 Pain in left hand (principal)

== ENCOUNTER → 2023-05-16 | Outpatient (CLI) | payer OTHER ==
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
== END | disposition home or self-care (01) ==
LOC: RADCTMAIN 14:03
PROVIDERS: ATTEND Emergency Medicine
DX: S30.0XXD Contusion of lower back and pelvis, subsequent encounter (principal); M43.17 Spondylolisthesis, lumbosacral region; M99.73 Connective tissue and disc stenosis of intervertebral foramina of lumbar region; M51.36 Other intervertebral disc degeneration, lumbar region; V89.9XXS Person injured in unspecified vehicle accident, sequela
CPT/HCPCS: 72131

== ENCOUNTER → 2023-05-21 | Outpatient (CLI) | payer OTHER ==
--- NOTE | 2023-05-23 07:24 | MR ---
EXAMINATION TYPE: MR lumbar spine wo con DATE OF EXAM: 05/21/2023 COMPARISON: CT lumbar spine 05/16/2023 HISTORY: Low back pain that radiates down both legs, mostly right. [facility] 05-08-23 CONTRAST: 0 mL intravenous Gadavist. TECHNIQUE: Multiplanar, multisequence images of the lumbar spine were acquired. FINDINGS: L5-S1: Disc desiccation is present. Broad-based disc bulge has epidural space impression. No thecal s ac compression is evident. Sagittal T2-weighted images there is some increased signal within the post erior superior left paracentral disc which extends beyond the endplate of L5 compatible with an annul ar tear within a small disc herniation. No spinal canal stenosis. No foraminal stenosis. L4-L5: No significant disc bulge or disc herniation. No spinal canal stenosis. No foraminal stenosi s. L3-L4: No significant disc bulge or disc herniation. No spinal canal stenosis. No foraminal stenosi s. L2-L3: No significant disc bulge or disc herniation. No spinal canal stenosis. No foraminal stenosi s. L1-L2: No significant disc bulge or disc herniation. No spinal canal stenosis. No foraminal stenosi s. T12-L1: No significant disc bulge or disc herniation. No spinal canal stenosis. No foraminal stenos is. IMPRESSION: 1. Subligamentous disc herniation L5-S1 without significant thecal sac compression.
== END | disposition home or self-care (01) ==
LOC: RADMRIMAIN 12:56
PROVIDERS: ATTEND Emergency Medicine
DX: M51.37 Other intervertebral disc degeneration, lumbosacral region (principal); S30.0XXD Contusion of lower back and pelvis, subsequent encounter; S23.41XD Sprain of ribs, subsequent encounter; S70.01XD Contusion of right hip, subsequent encounter
CPT/HCPCS: 72148

== ENCOUNTER 2023-08-23 11:17 | Emergency (ER) | payer BC, OTHER ==
[2023-08-23 12:09] VITALS: BP 117/75; PULSE 88; RESP 14; TEMP 97.6
[2023-08-23 13:02] LABS: Basophils % (A) 0 %; Eosinophils # (A) 0.1 k/uL (0-0.7); Eosinophils % (A) 1 %; HCT 37.7 % (34.0-46.0); HGB 12.8 gm/dL (11.4-16.0); Lymphocytes # (A) 2.1 k/uL (1.0-4.8); Lymphocytes % (A) 21 %; MCH 29.7 pg (25.0-35.0); MCHC 33.9 g/dL (31.0-37.0); MCV 87.6 fL (80.0-100.0); Mean Platelet Volume 7.7; Monocytes # (A) 0.6 k/uL (0-1.0); Monocytes % (A) 6 %; Neutrophils # (A) 6.9 k/uL (1.3-7.7); Neutrophils % (A) 70 %; Platelet Count 284 k/uL (150-450); RDW 13.4 % (11.5-15.5); WBC 9.8 k/uL (3.8-10.6)
[2023-08-23 13:15] LABS: Appearance,Urine Clear (Clear); Bacteria,Urine Rare /hpf; Bilirubin,Urine Negative (Negative); Blood,Urine Negative (Negative); Color,Urine Yellow; Glucose,Urine (UA) Negative (Negative); Ketones,Urine Negative (Negative); Leukocyte Esterase,Urine Small (Negative); Mucus,Urine Moderate /hpf; Nitrite,Urine Negative (Negative); Protein,Urine Trace (Negative); RBC,Urine 3 /hpf (0-5); Specific Gravity,Urine 1.027 (1.001-1.035); Squamous Epithelial Cell,Urine 7 /hpf (0-4); Urobilinogen,Urine <2.0 mg/dL (<2.0); WBC,Urine 3 /hpf (0-5)
[2023-08-23 13:19] LABS: ALT 13 U/L (4-34); AST 18 U/L (14-36); African American GFR (CKD) >90 (>60 ml/min/1.73 sqM); Albumin 3.7 g/dL (3.5-5.0); Alkaline Phosphatase 51 U/L (38-126); Anion Gap 9 mmol/L; Blood Urea Nitrogen 10 mg/dL (7-17); Calcium 9.2 mg/dL (8.4-10.2); Carbon Dioxide 22 mmol/L (22-30); Chloride 105 mmol/L (98-107); Glucose 82 mg/dL (74-99); Non-African American GFR(CKD) >90 (>60 ml/min/1.73 sqM); Potassium 4.2 mmol/L (3.5-5.1); Sodium 136 mmol/L (137-145); Total Bilirubin 0.2 mg/dL (0.2-1.3); Total Protein 6.4 g/dL (6.3-8.2)
--- NOTE | 2023-08-23 13:52 | US ---
EXAMINATION TYPE: Ultrasound OB <= 14 week fetus DATE OF EXAM: 08/23/2023 1:38 PM COMPARISON: NONE CLINICAL INDICATION: Female, 23 years old with history of pain; Patient states having spotting this m orning. EXAM PERFORMED: Transabdominal EXAM MEASUREMENTS: GESTATIONAL AGE / DATING Physician Established: Not yet established Dates by LMP: (12 weeks/6 days) EDC: 02/29/2024 Dates by First Scan: No previous this is first scan Dates by Current Scan for: (10 weeks/1 days) EDC: 03/19/2024 MATERNAL ANATOMY Uterus: 9.2 x 7.1 x 5.4 cm Right Ovary: 3.1 x 1.7 x 1.8 cm Left Ovary: 2.7 x 2.2 x 2.0 cm Post CDS / Adnexa: no free fluid Presence of free fluid: no Presence of corpus luteal cyst: no Presence of subchorionic bleed: no GESTATION / SURVEY CRL: 3.3 cm (10 weeks/1 days) MSD: seen, not measured Yolk Sac (normal less than 6mm): not visualized Heart Rate: 162 bpm Rhythm: Normal IUP: Viable IUP Date of LMP: 05/25/2023, G1 Beta HcG (if available): Not available at this time Operating Engineer Apprentice notes: GS and CRL visualized within endometrial cavity. IMPRESSION: 1. Single live intrauterine with estimated gestational age of 12 weeks 6 days by LMP. Curre nt ultrasound biometry is smaller and discordant at 10 weeks 1 day. Correlate as to accuracy of recal l of LMP. Short interval follow-up to assess growth as clinically indicated. 2. Otherwise, complete survey recommended at 18-20 weeks.
--- NOTE | 2023-08-23 15:04 | ED ---
General Adult HPI - General Chief complaint: Vaginal Bleeding Stated complaint: Vaginal bleeding Time Seen by Provider: 08/23/23 12:05 Source: patient Mode of arrival: ambulatory Limitations: no limitations - History of Present Illness Initial comments: 23-year-old female presents the emergency department reporting vaginal bleeding. States that she is approximately 13 weeks . She sees Galina CHARLES at [facility]. She is . She did have an ultrasound done several weeks ago which demonstrated an intrauterine . She does not know how far she dated a long. She does have an follow up appointment on the . States that she has had some intermittent bleeding throughout the whole however this morning the blood was bright red. Denies heavy bleeding. No nausea or vomiting. No dizziness. No abdominal trauma. Unsure of her blood type. She denies dysuria, hematuria or difficulty voiding. No black or bloody stools. She called her NUCLEAR REACTOR TECHNICIAN office who told her to come to the emergency department - Related Data Home Medications Medication Instructions Recorded Confirmed metFORMIN HCL ER [Glucophage Xr] 1,000 mg PO DAILY 12/17/19 10/20/22 Venlafaxine HCl [Effexor XR] 150 mg PO DAILY 03/27/21 10/20/22 Famotidine [Pepcid] 20 mg PO BID 10/20/22 10/20/22 Levothyroxine Sodium [Synthroid] 25 mcg PO DAILY 10/20/22 10/20/22 Previous Rx's Medication Instructions Recorded Ibuprofen [Motrin] 600 mg PO Q8HR PRN #20 tab 10/20/22 Phenazopyridine [Pyridium] 200 mg PO TID PRN #6 tablet 10/20/22 Sulfamethox-Tmp 800-160Mg [Bactrim 1 each PO Q12HR 5 Days #10 tab 10/20/22 Ds] Ciprofloxacin HCl [Cipro] 500 mg PO Q12HR #20 tablet 11/01/22 Naproxen [Naprosyn] 500 mg PO BID PRN #20 tab 11/01/22 Phenazopyridine HCl [Pyridium] 200 mg PO TID #9 tab 11/01/22 Allergies Allergy/AdvReac Type Severity Reaction Status Date / Time amoxicillin Allergy Rash/Hives Verified 11/01/22 11:49 all over cephalexin [From Keflex] Allergy Rash/Hives Verified 11/01/22 11:49 Penicillins Allergy Rash/Hives Verified 11/01/22 11:49 latex AdvReac Mild Itching Verified 11/01/22 11:49 adhesive tape AdvReac PAPER & Verified 11/01/22 11:49 PLASTIC IRRITATE SKIN AND ADHESIVE PEELS SKIN. clindamycin [From Cleocin] AdvReac Nausea & Verified 11/01/22 11:49 Vomiting Review of Systems ROS Statement: Those systems with pertinent positive or pertinent negative responses have been documented in the HPI. ROS Other: All systems not noted in ROS Statement are negative. Past Medical History Additional Past Medical History / Comment(s): PCOS, MENSTRUAL PERIODS HEAVY AND PAINFUL, "MILD ASTHMA", CHRONIC BACK PAIN-SEES CHIROPRACTOR., ANEMIA. , STATES HAVING DIARRHEA, NAUSEA AND ABD PAIN. History of Any Multi-Drug Resistant Organisms: None Reported Past Surgical History: Cholecystectomy, Orthopedic Surgery Additional Past Surgical History / Comment(s): bone removed from ankle (10 or 11 yrs old) Past Anesthesia/Blood Transfusion Reactions: No Reported Reaction, Motion Sickness Additional Past Anesthesia/Blood Transfusion Reaction / Comment(s): RARE MOTION SICKNESS Past Psychological History: Anxiety Smoking Status: Vaper Past Alcohol Use History: None Reported Past Drug Use History: None Reported - Past Family History Mother Family Medical History: No Reported History General Exam Limitations: no limitations General appearance: alert, in no apparent distress Head exam: Present: atraumatic, normocephalic, normal inspection Eye exam: Present: normal appearance, PERRL, EOMI. Absent: scleral icterus, conjunctival injection, periorbital swelling ENT exam: Present: normal exam, mucous membranes moist Neck exam: Present: normal inspection. Absent: tenderness, meningismus, lymphadenopathy Respiratory exam: Present: normal lung sounds bilaterally. Absent: respiratory distress, wheezes, rales, rhonchi, stridor Cardiovascular Exam: Present: regular rate, normal rhythm, normal heart sounds. Absent: systolic murmur, diastolic murmur, rubs, gallop, clicks GI/Abdominal exam: Present: soft, normal bowel sounds. Absent: distended, tenderness, guarding, rebound, rigid Extremities exam: Present: normal inspection, full ROM, normal capillary refill. Absent: tenderness, pedal edema, joint swelling, calf tenderness Back exam: Present: normal inspection Neurological exam: Present: alert, oriented X3, CN II-XII intact Psychiatric exam: Present: normal affect, normal mood Skin exam: Present: warm, dry, intact, normal color. Absent: rash Course Vital Signs 08/23/23 12:02 Temperature 97.6 F Pulse Rate 88 Respiratory 14 Rate Blood Pressure 117/75 O2 Sat by Pulse 100 Oximetry Medical Decision Making - Medical Decision Making Was pt. sent in by a medical professional or institution (, PA, TIRE SPOTTER, urgent care, hospital, or detention...) When possible be specific @ -Patient sent in by NUCLEAR REACTOR TECHNICIAN office Did you speak to anyone other than the patient for history (EMS, parent, family, police, friend...)? What history was obtained from this source @ -No Did you review nursing and triage notes (agree or disagree)? Why? @ -I reviewed and agree with nursing and triage notes Were old charts reviewed (outside hosp., previous admission, EMS record, old EKG, old radiological studies, urgent care reports/EKG's, detention records)? Report findings @ -No old charts were reviewed Differential Diagnosis (chest pain, altered mental status, abdominal pain women, abdominal pain men, vaginal bleeding, weakness, fever, dyspnea, syncope, headache, dizziness, GI bleed, back pain, seizure, CVA, palpatations, mental health, musculoskeletal)? @ -Differential Vaginal Bleeding: Spontaneous , threatened , molar , ectopic , bloody show, incompetent cervix, abruptioplacenta, placenta previa, uterine rupture, dysfunctional uterine bleeding, hemorrhage, uterine fibroids, this is not meant to be an all-inclusive list. EKG interpreted by me (3pts min.). @ -EKG demonstrates sinus rhythm with a rate of 86. MD interval 135. QRS 104. QTC of 423. No acute ST segment elevations or depressions X-rays interpreted by me (1pt min.). @ -None done CT interpreted by me (1pt min.). @ -None done U/S interpreted by me (1pt. min.). @ -Yes and demonstrates an intrauterine with heart tones of 16 2. Baby is measuring smaller than dates What testing was considered but not performed or refused? (CT, X-rays, U/S, labs)? Why? @ -Pelvic exam however patient refused What meds were considered but not given or refused? Why? @ -None Did you discuss the management of the patient with other professionals (maría dowell i.e. , PA, TIRE SPOTTER, lab, RT, psych nurse, social media designer, senior ux developer, teacher, light armored reconnaissance officer, nurse outreach case manager)? Give summary @ -No Was smoking cessation discussed for >3mins.? @ -No Was critical care preformed (if so, how long)? @ -No Were there social determinants of health that impacted care today? How? (Homelessness, low income, unemployed, alcoholism, drug addiction, transpor tation, low edu. Level, literacy, decrease access to med. care, alf, rehab)? @ -No Was there de-escalation of care discussed even if they declined (Discuss DNR or withdrawal of care, Hospice)? DNR status @ -No What co-morbidities impacted this encounter? (DM, HTN, Smoking, COPD, CAD, Cancer, CVA, ARF, Chemo, Hep., AIDS, mental health diagnosis, sleep apnea, morbid obesity)? @ -None Was patient admitted / discharged? Hospital course, mention meds given and route, prescriptions, significant lab abnormalities, going to OR and other pertinent info. @ -Discharged. Upon arrival patient placed in bed 25. Thorough history and physical exam is performed. IV access is established and laboratory studies are conducted. Ultrasound is performed. Baby is measuring smaller than dates. Because of this and her vaginal bleeding there is concern for threatened miscarr iage however baby does have a heartbeat at this time. Patient's will be placed on pelvic rest. She is given a work note. Must follow-up with her NUCLEAR REACTOR TECHNICIAN to have repeat ultrasounds and monitored closely because of babies possible abnormal growth. She is to return should bleeding get heavier. Patient agreeable to this plan and was discharged in stable condition Undiagnosed new problem with uncertain prognosis? @ -Yes Drug Therapy requiring intensive monitoring for toxicity (Heparin, Nitro, Insulin, Cardizem)? @ -No Were any procedures done? @ -No Diagnosis/symptom? @ -Acute vaginal bleeding and pelvic pain, first trimester , thre atened Acute, or Chronic, or Acute on Chronic? @ -Acute Uncomplicated (without systemic symptoms) or Complicated (systemic symptoms)? @ -Complicated Side effects of treatment? @ -No Exacerbation, Progression, or Severe Exacerbation? @ -No Poses a threat to life or bodily function? How? (Chest pain, USA, NC, pneumonia, PE, COPD, DKA, ARF, appy, cholecystitis, CVA, Diverticulitis, Homicidal, Suicidal, threat to staff... and all critical care pts) @ -No - Lab Data Result diagrams: 08/23/23 12:49 08/23/23 12:49 Lab Results 08/23/23 08/23/23 08/23/23 Range/Units 12:49 12:49 12:49 WBC 9.8 (3.8-10.6) k/uL RBC 4.30 (3.80-5.40) m/uL Hgb 12.8 (11.4-16.0) gm/dL Hct 37.7 (34.0-46.0) % MCV 87.6 (80.0-100.0) fL MCH 29.7 (25.0-35.0) pg MCHC 33.9 (31.0-37.0) g/dL RDW 13.4 (11.5-15.5) % Plt Count 284 (150-450) k/uL MPV 7.7 Neutrophils % 70 % Lymphocytes % 21 % Monocytes % 6 % Eosinophils % 1 % Basophils % 0 % Neutrophils # 6.9 (1.3-7.7) k/uL Lymphocytes # 2.1 (1.0-4.8) k/uL Monocytes # 0.6 (0-1.0) k/uL Eosinophils # 0.1 (0-0.7) k/uL Basophils # 0.0 (0-0.2) k/uL Sodium 136 L (137-145) mmol/L Potassium 4.2 (3.5-5.1) mmol/L Chloride 105 (98-107) mmol/L Carbon Dioxide 22 (22-30) mmol/L Anion Gap 9 mmol/L BUN 10 (7-17) mg/dL Creatinine 0.62 (0.52-1.04) mg/dL Est GFR (CKD-EPI)AfAm >90 (>60 ml/min/1.73 sqM) Est GFR (CKD-EPI)NonAf >90 (>60 ml/min/1.73 sqM) Glucose 82 (74-99) mg/dL Calcium 9.2 (8.4-10.2) mg/dL Total Bilirubin 0.2 (0.2-1.3) mg/dL AST 18 (14-36) U/L ALT 13 (4-34) U/L Alkaline Phosphatase 51 (38-126) U/L Total Protein 6.4 (6.3-8.2) g/dL Albumin 3.7 (3.5-5.0) g/dL Urine Color Yellow Urine Appearance Clear (Clear) Urine pH 6.0 (5.0-8.0) Ur Specific Mcintosh 1.027 (1.001-1.035) Urine Protein Trace H (Negative) Urine Glucose (UA) Negative (Negative) Urine Ketones Negative (Negative) Urine Blood Negative (Negative) Urine Nitrite Negative (Negative) Urine Bilirubin Negative (Negative) Urine Urobilinogen <2.0 (<2.0) mg/dL Ur Leukocyte Esterase Small H (Negative) Urine RBC 3 (0-5) /hpf Urine WBC 3 (0-5) /hpf Ur Squamous Epith Cells 7 H (0-4) /hpf Urine Bacteria Rare H (None) /hpf Urine Mucus Moderate H (None) /hpf Blood Type Blood Type Recheck Bld Type Recheck Status 08/23/23 Range/Units 12:49 WBC (3.8-10.6) k/uL RBC (3.80-5.40) m/uL Hgb (11.4-16.0) gm/dL Hct (34.0-46.0) % MCV (80.0-100.0) fL MCH (25.0-35.0) pg MCHC (31.0-37.0) g/dL RDW (11.5-15.5) % Plt Count (150-450) k/uL MPV Neutrophils % % Lymphocytes % % Monocytes % % Eosinophils % % Basophils % % Neutrophils # (1.3-7.7) k/uL Lymphocytes # (1.0-4.8) k/uL Monocytes # (0-1.0) k/uL Eosinophils # (0-0.7) k/uL Basophils # (0-0.2) k/uL Sodium (137-145) mmol/L Potassium (3.5-5.1) mmol/L Chloride (98-107) mmol/L Carbon Dioxide (22-30) mmol/L Anion Gap mmol/L BUN (7-17) mg/dL Creatinine (0.52-1.04) mg/dL Est GFR (CKD-EPI)AfAm (>60 ml/min/1.73 sqM) Est GFR (CKD-EPI)NonAf (>60 ml/min/1.73 sqM) Glucose (74-99) mg/dL Calcium (8.4-10.2) mg/dL Total Bilirubin (0.2-1.3) mg/dL AST (14-36) U/L ALT (4-34) U/L Alkaline Phosphatase (38-126) U/L Total Protein (6.3-8.2) g/dL Albumin (3.5-5.0) g/dL Urine Color Urine Appearance (Clear) Urine pH (5.0-8.0) Ur Specific Mcintosh (1.001-1.035) Urine Protein (Negative) Urine Glucose (UA) (Negative) Urine Ketones (Negative) Urine Blood (Negative) Urine Nitrite (Negative) Urine Bilirubin (Negative) Urine Urobilinogen (<2.0) mg/dL Ur Leukocyte Esterase (Negative) Urine RBC (0-5) /hpf Urine WBC (0-5) /hpf Ur Squamous Epith Cells (0-4) /hpf Urine Bacteria (None) /hpf Urine Mucus (None) /hpf Blood Type A Positive Blood Type Recheck No Previous Record Bld Type Recheck Status [facility] ONLY Disposition Clinical Impression: Threatened , Vaginal bleeding affecting early Disposition: HOME SELF-CARE Condition: Stable Instructions (If sedation given, give patient instructions): Non-Threatening First Trimester Vaginal Bleed (ED) Additional Instructions: Please remain on pelvic rest. Call your NUCLEAR REACTOR TECHNICIAN to make a sooner appointment as you will need an ultrasound in 1-2 weeks due to abnormal dating. If your bleeding should get worse or you have uncontrolled pain, return to the emergency department Is patient prescribed a controlled substance at d/c from ED?: No Referrals: Nalini Graves DO [Primary Care Provider] - 1-2 days Time of Disposition: 15:03
== END 2023-08-23 15:14 | disposition home or self-care (01) ==
LOC: EC 11:17
DX: O20.0 Threatened abortion (principal); O99.341 Other mental disorders complicating pregnancy, first trimester; F41.9 Anxiety disorder, unspecified; O99.331 Smoking (tobacco) complicating pregnancy, first trimester; F17.290 Nicotine dependence, other tobacco product, uncomplicated; Z88.0 Allergy status to penicillin; Z88.1 Allergy status to other antibiotic agents; Z90.49 Acquired absence of other specified parts of digestive tract; Z91.09 Other allergy status, other than to drugs and biological substances; Z91.040 Latex allergy status; Z3A.13 13 weeks gestation of pregnancy
CPT/HCPCS: 36415; 76801; 80053; 81001; 85025; 86900; 86901; 99284

== ENCOUNTER 2023-10-16 10:47 | Outpatient (CLI) | payer BC ==
[2023-10-16] MEDS: LACTATED RINGERS 1,000 ML IV SCH (11:46)
[2023-10-16] MEDS: ACETAMINOPHEN IV (For NPO) 1,000 MG in EMPTY BAG 1 BAG IVPB ONE (11:47)
[2023-10-16 12:35] VITALS: BP 115/72; PULSE 76; RESP 18; TEMP 96.6
--- NOTE | 2023-10-22 08:25 | P.MSEPDOC ---
Presenting Problems - Arrival Data Date of Arrival on Unit: 10/16/23 Time of Arrival on Unit: 10:47 Mode of Transport: Ambulatory - Complaint OB-Reason for Admission/Chief Complaint: Headache Comment: VYAS x 5 days, unrelieved c\tylenol. High BPs on home cuff Medical History - Information : 1 Para: 0 - Gestational Age Gestational Age by LIZETH (wks/days): 18 Weeks and 5 Days Review of Systems - Review of Systems Constitutional: No problems Breast: No problems ENT: No problems Cardiovascular: No problems Respiratory: No problems Gastrointestinal: No problems Genitourinary: No problems Musculoskeletal: No problems Neurological: No problems Skin: No problems Vital Signs - Temperature Temperature: 96.6 F Temperature Source: Temporal Artery Scan - Pulse Right Sitting Brachial Pulse Rate: 76 Pulse Assessment Method: Automatic Cuff - Respirations Respiratory Rate: 18 Oxygen Delivery Method: Room Air O2 Sat by Pulse Oximetry: 98 - Blood Pressure Right Arm Sitting Blood Pressure: 115/72 Blood Pressure Mean: 86 Blood Pressure Source: Automatic Cuff Physician Notification - Physician Notified Physician Notified Date: 10/16/23 Physician Notified Time: 11:30 Physician: Laura Newby - Notification Comment Comment: Spk c\Dr. Newby, advsd of pts arrival to triage, headache x 5 days, no relief c\tylenol and increased BP on home BP cuff. Reported pts BPs in triage, no edema, epigastric pain, ghulam reflex +1, no clonus. FHR 150-160bpm via doppler. Pt c\light sensitivity and nausea-nausea throughout . Order rec'd for 1L LR, Ofrimev and benadryl if pt wants. May be dischraged home following IV medications. 1135: Pt consented to IV LR and Ofirmev, declined IV benadryl. Maternal Triage Index - Maternal Triage Index Presenting for scheduled procedure w/no complaint: No - Stat/Priority 1 Stat Priority 1: No - Urgent/Priority 2 Urgent Priority 2: No - Prompt/Priority 3 Prompt Priority 3: No - Non-Urgent/Priority 4 Non-Urgent Priority 4: Yes Criteria Met for Priority 4: Headache Disposition - Disposition OB Disposition: Discharge to home, Written follow up instructions reviewed Discharge Date: 10/16/23 Discharge Time: 12:13 I agree with the RN Medical Screening Exam: Yes Physician's MSE Comment: I have neither seen nor examined the patient Case reviewed; plan agreed upon as documented in EMR&OBIX.: Yes Diagnosis: MATERNAL CARE FOR PROBLEM, UNSP, THIRD * DO NOT USE *
== END 2023-10-16 12:15 | disposition home or self-care (01) ==
LOC: FBPOP 10:47
PROVIDERS: ATTEND Obstetrics & Gynecology
DX: O26.892 Other specified pregnancy related conditions, second trimester (principal); O99.332 Smoking (tobacco) complicating pregnancy, second trimester; F17.200 Nicotine dependence, unspecified, uncomplicated; Z3A.18 18 weeks gestation of pregnancy; Z88.0 Allergy status to penicillin; Z88.1 Allergy status to other antibiotic agents; Z91.040 Latex allergy status; Z91.048 Other nonmedicinal substance allergy status
CPT/HCPCS: 99215; 96361; 96365; J0131; 99214

== ENCOUNTER 2023-10-28 10:29 | Emergency (ER) | payer BC ==
[2023-10-28 10:56] VITALS: TEMP 98.1
[2023-10-28] MEDS ORDERED: METOCLOPRAMIDE 5 MG/ML 2 ML VIAL IVP STA (11:14)
[2023-10-28] MEDS ORDERED: SODIUM CHLORIDE 0.9% 2,000 ML IV STA (11:14)
[2023-10-28] MEDS ORDERED: ACETAMINOPHEN IV (For NPO) 1,000 MG in EMPTY BAG 1 BAG IVPB STA (11:14)
[2023-10-28 11:49] LABS: Basophils % (A) 0 %; Eosinophils # (A) 0.1 k/uL (0-0.7); Eosinophils % (A) 1 %; HGB 12.6 gm/dL (11.4-16.0); Lymphocytes # (A) 1.5 k/uL (1.0-4.8); Lymphocytes % (A) 16 %; MCH 29.9 pg (25.0-35.0); MCV 85.5 fL (80.0-100.0); Mean Platelet Volume 8.9; Monocytes # (A) 0.5 k/uL (0-1.0); Monocytes % (A) 5 %; Neutrophils # (A) 7.2 k/uL (1.3-7.7); Neutrophils % (A) 76 %; Platelet Count 305 k/uL (150-450); RBC 4.21 m/uL (3.80-5.40); RDW 13.6 % (11.5-15.5); WBC 9.4 k/uL (3.8-10.6)
--- NOTE | 2023-10-28 11:53 | ED ---
Female Urogenital HPI - General Chief complaint: Urogenital Stated complaint: uti-20 wks preg Time Seen by Provider: 10/28/23 10:50 Source: patient, RN notes reviewed Mode of arrival: ambulatory Limitations: no limitations - History of Present Illness Initial comments: This is a 23-year-old female who presents to the emergency department for urinary symptoms. States that she is 20 weeks and . She was diagnosed with a UTI at her primary care provider's office 2 days ago and started on Bactrim. However, due to nausea and vomiting she is unable to keep down the medication other than 2 doses. Reports urinary urgency and some mild back pain. However, 2 days ago she did have burning with urination that has since resolved. She has been taking Zofran with no relief of the nausea, however states that Zofran is usually effective, and believes that the Bactrim is making her sick. She was advised to come here to see if she can get IV an tibiotics. Denies any pelvic pain or vaginal bleeding. Reports regular movement. She does have an upcoming appointment with her PROJECT MANAGEMENT ANALYST, Dr. Kearns, in 3 days. - Related Data Home Medications Medication Instructions Recorded Confirmed metFORMIN HCL ER [Glucophage Xr] 1,000 mg PO DAILY 12/17/19 10/20/22 Venlafaxine HCl [Effexor XR] 150 mg PO DAILY 03/27/21 10/20/22 Famotidine [Pepcid] 20 mg PO BID 10/20/22 10/20/22 Levothyroxine Sodium [Synthroid] 25 mcg PO DAILY 10/20/22 10/20/22 Previous Rx's Medication Instructions Recorded Ibuprofen [Motrin] 600 mg PO Q8HR PRN #20 tab 10/20/22 Phenazopyridine [Pyridium] 200 mg PO TID PRN #6 tablet 10/20/22 Sulfamethox-Tmp 800-160Mg [Bactrim 1 each PO Q12HR 5 Days #10 tab 10/20/22 Ds] Ciprofloxacin HCl [Cipro] 500 mg PO Q12HR #20 tablet 11/01/22 Naproxen [Naprosyn] 500 mg PO BID PRN #20 tab 11/01/22 Phenazopyridine HCl [Pyridium] 200 mg PO TID #9 tab 11/01/22 Allergies Allergy/AdvReac Type Severity Reaction Status Date / Time amoxicillin Allergy Rash/Hives Verified 10/28/23 10:43 all over cephalexin [From Keflex] Allergy Rash/Hives Verified 10/28/23 10:43 Penicillins Allergy Rash/Hives Verified 10/28/23 10:43 latex AdvReac Mild Itching Verified 10/28/23 10:43 adhesive tape AdvReac PAPER & Verified 10/28/23 10:43 PLASTIC IRRITATE SKIN AND ADHESIVE PEELS SKIN. clindamycin [From Cleocin] AdvReac Nausea & Verified 10/28/23 10:43 Vomiting Review of Systems ROS Statement: Those systems with pertinent positive or pertinent negative responses have been documented in the HPI. ROS Other: All systems not noted in ROS Statement are negative. Past Medical History Additional Past Medical History / Comment(s): PCOS, MENSTRUAL PERIODS HEAVY AND PAINFUL, "MILD ASTHMA", CHRONIC BACK PAIN-SEES CHIROPRACTOR., ANEMIA. , STATES HAVING DIARRHEA, NAUSEA AND ABD PAIN. History of Any Multi-Drug Resistant Organisms: None Reported Past Surgical History: Cholecystectomy, Orthopedic Surgery Additional Past Surgical History / Comment(s): bone removed from ankle (10 or 11 yrs old) Past Anesthesia/Blood Transfusion Reactions: No Reported Reaction, Motion Sickness Additional Past Anesthesia/Blood Transfusion Reaction / Comment(s): RARE MOTION SICKNESS Past Psychological History: Anxiety Smoking Status: Never smoker Past Alcohol Use History: None Reported Past Drug Use History: None Reported - Past Family History Mother Family Medical History: No Reported History General Exam Limitations: no limitations General appearance: alert, in no apparent distress Head exam: Present: atraumatic, normocephalic, normal inspection Respiratory exam: Present: normal lung sounds bilaterally. Absent: respiratory distress, wheezes, rales, rhonchi, stridor Cardiovascular Exam: Present: regular rate, normal rhythm, normal heart sounds. Absent: systolic murmur, diastolic murmur, rubs, gallop, clicks Neurological exam: Present: alert, oriented X3, CN II-XII intact Psychiatric exam: Present: normal affect, normal mood Skin exam: Present: warm, dry, intact, normal color. Absent: rash Course Vital Signs 10/28/23 10/28/23 10/28/23 10:39 12:13 12:56 Temperature 98.1 F Pulse Rate 95 67 84 Respiratory 18 17 Rate Blood Pressure 111/76 112/77 112/77 O2 Sat by Pulse 97 98 97 Oximetry 10/28/23 13:49 Temperature Pulse Rate 72 Respiratory 17 Rate Blood Pressure 125/79 O2 Sat by Pulse 98 Oximetry Medical Decision Making - Medical Decision Making This is a 23-year-old female who presents to the emergency department for urinary symptoms. Was pt. sent in by a medical professional or institution? @ -No Did you speak to anyone other than the patient for history? @ -No Did you review nursing and triage notes? @ -Yes, and I agree, it is accurate with regards to the patient's symptoms. Were old charts reviewed? @ -No Differential Diagnosis? @ -Differential Back Pain: Strain, zoster, cauda equina syndrome, epidural abscess, vertebral osteomyelitis, discitis, fracture, subluxation, disc herniation, DJD, spinal stenosis, dissection, AAA, pancreatitis, peptic ulcer disease, pyelonephritis, kidney stone, this is not meant to be an all-inclusive list. EKG interpreted by me (3pts min.)? @ -Not obtained X-rays interpreted by me (1pt min.)? @ -Not obtained CT interpreted by me (1pt min.)? @ -Not obtained U/S interpreted by me (1pt. min.)? @ -Not obtained What testing was considered but not performed? (CT, X-rays, U/S, labs)? Why? @ -None What meds were considered but not given? Why? @ -None Did you discuss the management of the patient with other professionals? @ -No Did you reconcile home meds? @ -No Was smoking cessation discussed for >3mins.? @ -I discussed smoking cessation for greater than 3 minutes. The risk of smoking were discussed with the patient including but not limited to risks of cancer, stroke, coronary artery disease and COPD. Also discussed with patient were multiple methods of quitting smoking. Lastly we discussed the financial cost of smoking. Was critical care preformed (if so, how long)? @ -No Were there social determinants of health that impacted care today? How? (Homelessness, low income, unemployed, alcoholism, drug addiction, transportation, low edu. Level, literacy, decrease access to med. care, longterm, rehab)? @ -No Was there de-escalation of care discussed even if they declined? (Discuss DNR or withdrawal of care, Hospice)? @ -No What co-morbidities impacted this encounter? (DM, HTN, Smoking, COPD, CAD, Ca ncer, CVA, Hep., AIDS, mental health diagnosis, sleep apnea, morbid obesity)? @ - Was patient admitted / discharged? @ -Discharged. Lab work obtained revealing signs of dehydration, and was otherwise unremarkable. Urinalysis was negative for signs of infection. Patient treated with IV fluids. Advised that based on her current urinalysis, she does not need to continue taking the Bactrim. Urine will be sent for culture. Discussed with the patient that urinary symptoms and back pain are expected in , especially as the fetus grows and puts more pressure on the bladder. Doppler was used to measure heart tones at 140-155 BPM and patient reports feeling regular movement. Patient discharged home in stable condition. She'll continue to take Zofran as needed. Advised to slowly advance her diet as tolerated and remain well-hydrated. She will otherwise follow up with her PROJECT MANAGEMENT ANALYST in 3 days. Undiagnosed new problem with uncertain prognosis? @ -None Drug Therapy requiring intensive monitoring for toxicity (Heparin, Nitro, Insulin, Cardizem)? @ -None Were any procedures done? @ -None Diagnosis/symptom? @ -Urinary urgency in , back pain Acute, or Chronic, or Acute on Chronic? @ -Acute Uncomplicated (without systemic symptoms) or Complicated (systemic symptoms)? @ -Uncomplicated Side effects of treatment? @ -None Exacerbation, Progression, or Severe Exacerbation] @ -Not applicable Poses a threat to life or bodily function? @ -No Return precautions reviewed in depth, the patient is instructed to return to the emergency department with any new, worsening, or concerning symptoms. Patient verbalized understanding. This case was discussed in detail with the attending ED physician, Dr. Sol. Presentation, findings, and treatment plan discussed in detail as well. - Lab Data Result diagrams: 10/28/23 11:10/28/23 11:20 Lab Results 10/28/23 10/28/23 10/28/23 Range/Units 11:20 11:20 11:20 WBC 9.4 (3.8-10.6) k/uL RBC 4.21 (3.80-5.40) m/uL Hgb 12.6 (11.4-16.0) gm/dL Hct 36.0 (34.0-46.0) % MCV 85.5 (80.0-100.0) fL MCH 29.9 (25.0-35.0) pg MCHC 35.0 (31.0-37.0) g/dL RDW 13.6 (11.5-15.5) % Plt Count 305 (150-450) k/uL MPV 8.9 Neutrophils % 76 % Lymphocytes % 16 % Monocytes % 5 % Eosinophils % 1 % Basophils % 0 % Neutrophils # 7.2 (1.3-7.7) k/uL Lymphocytes # 1.5 (1.0-4.8) k/uL Monocytes # 0.5 (0-1.0) k/uL Eosinophils # 0.1 (0-0.7) k/uL Basophils # 0.0 (0-0.2) k/uL Sodium 133 L (137-145) mmol/L Potassium 4.5 (3.5-5.1) mmol/L Chloride 103 (98-107) mmol/L Carbon Dioxide 20 L (22-30) mmol/L Anion Gap 10 mmol/L BUN 7 (7-17) mg/dL Creatinine 0.40 L (0.52-1.04) mg/dL Est GFR (CKD-EPI)AfAm >90 (>60 ml/min/1.73 sqM) Est GFR (CKD-EPI)NonAf >90 (>60 ml/min/1.73 sqM) Glucose 84 (74-99) mg/dL Plasma Lactic Acid Prieto (0.7-2.0) mmol/L Calcium 9.4 (8.4-10.2) mg/dL Total Bilirubin 0.6 (0.2-1.3) mg/dL AST 23 (14-36) U/L ALT 20 (4-34) U/L Alkaline Phosphatase 61 (38-126) U/L Total Protein 6.8 (6.3-8.2) g/dL Albumin 3.8 (3.5-5.0) g/dL HCG, Quant 8311.1 mIU/mL Urine Color Dark Yellow Urine Appearance Clear (Clear) Urine pH 6.5 (5.0-8.0) Ur Specific [place] 1.025 (1.001-1.035) Urine Protein Trace H (Negative) Urine Glucose (UA) Negative (Negative) Urine Ketones 4+ H (Negative) Urine Blood Negative (Negative) Urine Nitrite Negative (Negative) Urine Bilirubin Negative (Negative) Urine Urobilinogen <2.0 (<2.0) mg/dL Ur Leukocyte Esterase Negative (Negative) 10/28/23 Range/Units 11:20 WBC (3.8-10.6) k/uL RBC (3.80-5.40) m/uL Hgb (11.4-16.0) gm/dL Hct (34.0-46.0) % MCV (80.0-100.0) fL MCH (25.0-35.0) pg MCHC (31.0-37.0) g/dL RDW (11.5-15.5) % Plt Count (150-450) k/uL MPV Neutrophils % % Lymphocytes % % Monocytes % % Eosinophils % % Basophils % % Neutrophils # (1.3-7.7) k/uL Lymphocytes # (1.0-4.8) k/uL Monocytes # (0-1.0) k/uL Eosinophils # (0-0.7) k/uL Basophils # (0-0.2) k/uL Sodium (137-145) mmol/L Potassium (3.5-5.1) mmol/L Chloride (98-107) mmol/L Carbon Dioxide (22-30) mmol/L Anion Gap mmol/L BUN (7-17) mg/dL Creatinine (0.52-1.04) mg/dL Est GFR (CKD-EPI)AfAm (>60 ml/min/1.73 sqM) Est GFR (CKD-EPI)NonAf (>60 ml/min/1.73 sqM) Glucose (74-99) mg/dL Plasma Lactic Acid Prieto 1.1 (0.7-2.0) mmol/L Calcium (8.4-10.2) mg/dL Total Bilirubin (0.2-1.3) mg/dL AST (14-36) U/L ALT (4-34) U/L Alkaline Phosphatase (38-126) U/L Total Protein (6.3-8.2) g/dL Albumin (3.5-5.0) g/dL HCG, Quant mIU/mL Urine Color Urine Appearance (Clear) Urine pH (5.0-8.0) Ur Specific [place] (1.001-1.035) Urine Protein (Negative) Urine Glucose (UA) (Negative) Urine Ketones (Negative) Urine Blood (Negative) Urine Nitrite (Negative) Urine Bilirubin (Negative) Urine Urobilinogen (<2.0) mg/dL Ur Leukocyte Esterase (Negative) Disposition Clinical Impression: Urinary urgency during , Back pain, Nicotine dependence Disposition: HOME SELF-CARE Instructions (If sedation given, give patient instructions): Nausea and Vomiting in (ED), (ED) Additional Instructions: Return to the emergency department with any new, worsening, or concerning symptoms. Continue to take your Zofran as prescribed. Make sure that you slowly advance your diet as tolerated and remain well-hydrated. Follow up with your PROJECT MANAGEMENT ANALYST as scheduled. You can also contact the office on Sunday and let them know that you were evaluated here today to see if they have any additional recommendations. Is patient prescribed a controlled substance at d/c from ED?: No Referrals: Nalini Graves DO [Primary Care Provider] - 1-2 days
[2023-10-28 11:56] LABS: Appearance,Urine Clear (Clear); Color,Urine Dark Yellow; PH, Urine 6.5 (5.0-8.0); Specific Gravity,Urine 1.025 (1.001-1.035)
[2023-10-28 11:57] LABS: Bilirubin,Urine Negative (Negative); Blood,Urine Negative (Negative); Glucose,Urine (UA) Negative (Negative); Ketones,Urine 4+ (Negative); Leukocyte Esterase,Urine Negative (Negative); Nitrite,Urine Negative (Negative); Protein,Urine Trace (Negative); Urobilinogen,Urine <2.0 mg/dL (<2.0)
[2023-10-28 12:05] LABS: ALT 20 U/L (4-34); African American GFR (CKD) >90 (>60 ml/min/1.73 sqM); Albumin 3.8 g/dL (3.5-5.0); Anion Gap 10 mmol/L; Blood Urea Nitrogen 7 mg/dL (7-17); Calcium 9.4 mg/dL (8.4-10.2); Carbon Dioxide 20 mmol/L (22-30); Chloride 103 mmol/L (98-107); Glucose 84 mg/dL (74-99); Non-African American GFR(CKD) >90 (>60 ml/min/1.73 sqM); Sodium 133 mmol/L (137-145); Total Bilirubin 0.6 mg/dL (0.2-1.3); Total Protein 6.8 g/dL (6.3-8.2)
[2023-10-28] MEDS ORDERED: ONDANSETRON 4 MG/2 ML VIAL IVP STA (12:20)
[2023-10-28 12:30] LABS: AST 23 U/L (14-36); Alkaline Phosphatase 61 U/L (38-126); Potassium 4.5 mmol/L (3.5-5.1)
[2023-10-28 12:57] VITALS: RESP 17
[2023-10-28] MEDS: diphenhydrAMINE 50 MG/ML 1 ML VIAL IVP STA ×2 (12:59→13:04)
[2023-10-28 14:09] VITALS: BP 125/79; PULSE 72
== END 2023-10-28 13:57 | disposition home or self-care (01) ==
LOC: EC 10:29
DX: O26.892 Other specified pregnancy related conditions, second trimester (principal); R39.15 Urgency of urination; M54.9 Dorsalgia, unspecified; O99.331 Smoking (tobacco) complicating pregnancy, first trimester; F17.210 Nicotine dependence, cigarettes, uncomplicated; O99.512 Diseases of the respiratory system complicating pregnancy, second trimester; J45.909 Unspecified asthma, uncomplicated; O99.342 Other mental disorders complicating pregnancy, second trimester; F41.9 Anxiety disorder, unspecified; Z3A.20 20 weeks gestation of pregnancy; Z79.899 Other long term (current) drug therapy; Z88.0 Allergy status to penicillin; Z88.1 Allergy status to other antibiotic agents; Z91.040 Latex allergy status; Z91.09 Other allergy status, other than to drugs and biological substances
CPT/HCPCS: 99406; 99284; 96374; 96375; 96361 ×2; 36415; 80053; 83605; 85025; 81003; 84702; J2765; J2405; J0131

== ENCOUNTER 2023-11-21 13:19 | Outpatient (CLI) | payer BC ==
[2023-11-21 14:53] LABS: Appearance,Urine Cloudy (Clear); Bilirubin,Urine Negative (Negative); Blood,Urine Trace (Negative); Color,Urine Yellow; Glucose,Urine (UA) Negative (Negative); Ketones,Urine Negative (Negative); Leukocyte Esterase,Urine Small (Negative); Mucus,Urine Many /hpf; Nitrite,Urine Negative (Negative); Protein,Urine Trace (Negative); RBC,Urine 1 /hpf (0-5); Squamous Epithelial Cell,Urine 3 /hpf (0-4); WBC,Urine 5 /hpf (0-5)
[2023-11-21 16:06] VITALS: PULSE 92; RESP 16; TEMP 97.2
--- NOTE | 2023-11-21 17:27 | P.MSEPDOC ---
Presenting Problems - Arrival Data Date of Arrival on Unit: 11/21/23 Time of Arrival on Unit: 13:19 Mode of Transport: Wheelchair - Complaint OB-Reason for Admission/Chief Complaint: Vaginal Bleeding, Pain Comment: Pt presents to triage after having "bleeding like a light period" that started around 1130 todaythat progressed to cramping pains that come and go every 3-5 min. Pt teary, rates nielsen 10/10 at worst and 6/of 10 right now. pain never completely goes away Medical History - Information : 1 Para: 0 Term: 0 : 0 Abortions: Spontaneous or Elective: 0 Number of Living Children: 0 - Gestational Age Gestational Age by LIZETH (wks/days): 23 Weeks and 6 Days - History Comment: Hx PCOS Review of Systems - Review of Systems Constitutional: No problems Breast: No problems ENT: No problems Cardiovascular: No problems Respiratory: No problems Gastrointestinal: Constipation, Pain Genitourinary: No problems Musculoskeletal: No problems Neurological: No problems Skin: No problems Comment: has not had BM in 10 days Vital Signs - Temperature Temperature: 97.2 F Temperature Source: Temporal Artery Scan - Pulse Right Pulse Rate: 92 Pulse Assessment Method: Automatic Cuff - Respirations Respiratory Rate: 16 Oxygen Delivery Method: Room Air O2 Sat by Pulse Oximetry: 98 Medical Screen Scoring - Cervical Exam Dilation (cm): 0 Effacement (%): 0 Station: 0 Membranes: Intact - Uterine Contractions Frequency From (mins): 0 Frequency To (mins): 0 Duration From (seconds): 0 Duration To (seconds): 0 - Assessment - Baby A Baseline FHR: 160 Physician Notification - Physician Notified Physician Notified Date: 11/21/23 Physician Notified Time: 14:20 Physician: Laura Newby Order Received: Yes (UA and vag exam) - Notification Comment Comment: discharge home with instructions for use of dulcolax suppository, prune juice and instructions to call dr office if unable to have BP by tommorrow (11days) Maternal Triage Index - Maternal Triage Index Presenting for scheduled procedure w/no complaint: No - Stat/Priority 1 Stat Priority 1: No - Urgent/Priority 2 Urgent Priority 2: No - Prompt/Priority 3 Prompt Priority 3: Yes Criteria Met for Priority 3: constipation, cramping vag spotting after intercourse Disposition - Disposition OB Disposition: Discharge to home Discharge Date: 11/21/23 Discharge Time: 15:48 I agree with the RN Medical Screening Exam: Yes Physician's MSE Comment: I have neither seen nor examined the patient. Case reviewed; plan agreed upon as documented in EMR&OBIX.: Yes Diagnosis: RELATED CONDITIONS, UNSPECIFIED, SECOND TRIMESTER
== END 2023-11-21 15:48 | disposition home or self-care (01) ==
LOC: FBPOP 13:19
PROVIDERS: ATTEND Obstetrics & Gynecology
DX: O46.92 Antepartum hemorrhage, unspecified, second trimester (principal); O99.332 Smoking (tobacco) complicating pregnancy, second trimester; F17.200 Nicotine dependence, unspecified, uncomplicated; Z3A.23 23 weeks gestation of pregnancy; Z88.8 Allergy status to other drugs, medicaments and biological substances; Z88.0 Allergy status to penicillin; Z88.1 Allergy status to other antibiotic agents; Z91.048 Other nonmedicinal substance allergy status
CPT/HCPCS: 81001; 99213

== ENCOUNTER 2024-01-28 14:35 | Outpatient (CLI) | payer BC ==
[2024-01-28 16:52] VITALS: BP 127/82; PULSE 78; RESP 16; TEMP 97.9
--- NOTE | 2024-01-28 20:57 | P.MSEPDOC ---
Presenting Problems - Arrival Data Date of Arrival on Unit: 01/28/24 Time of Arrival on Unit: 14:35 Mode of Transport: Ambulatory - Complaint OB-Reason for Admission/Chief Complaint: Rule Out PROM Medical History - Information : 1 Para: 0 Term: 0 : 0 Abortions: Spontaneous or Elective: 0 Number of Living Children: 0 - Gestational Age Gestational Age by LIZETH (wks/days): 33 Weeks and 0 Days Review of Systems - Review of Systems Constitutional: No problems Breast: No problems ENT: No problems Cardiovascular: No problems Respiratory: No problems Gastrointestinal: No problems Genitourinary: No problems Musculoskeletal: No problems Neurological: No problems Skin: No problems Vital Signs - Temperature Temperature: 97.9 F Temperature Source: Temporal Artery Scan - Pulse Right Sitting Pulse Rate: 78 Pulse Assessment Method: Automatic Cuff - Respirations Respiratory Rate: 16 Oxygen Delivery Method: Room Air - Blood Pressure Right Arm Blood Pressure: 127/82 Blood Pressure Mean: 97 Blood Pressure Source: Automatic Cuff Medical Screen Scoring - Cervical Exam Dilation (cm): 1 Membranes: Intact - Assessment - Baby A Baseline FHR: 130 Heart Rate - NICHD Category: Category I (Normal) NST: Reactive Physician Notification - Physician Notified Physician Notified Date: 01/28/24 Physician Notified Time: 16:14 Physician: Laura Newby Order Received: Yes (d/c) Maternal Triage Index - Non-Urgent/Priority 4 Non-Urgent Priority 4: Yes Criteria Met for Priority 4: negative amnsiure, reactive nst, no contractions on monitor or felt by pt, vag exam 1cm/thick Disposition - Disposition OB Disposition: Discharge to home Discharge Date: 01/28/24 Discharge Time: 16:21 I agree with the RN Medical Screening Exam: Yes Physician's MSE Comment: I have neither seen nor examined the patient Case reviewed; plan agreed upon as documented in EMR&OBIX.: Yes Diagnosis: FALSE LABOR AT OR AFTER 37 COMPLETED WEEKS OF GESTATION
== END 2024-01-28 16:21 | disposition home or self-care (01) ==
LOC: FBPOP 14:35
PROVIDERS: ATTEND Obstetrics & Gynecology
DX: O47.03 False labor before 37 completed weeks of gestation, third trimester (principal); O99.333 Smoking (tobacco) complicating pregnancy, third trimester; F17.200 Nicotine dependence, unspecified, uncomplicated; Z3A.33 33 weeks gestation of pregnancy; Z88.0 Allergy status to penicillin; Z91.048 Other nonmedicinal substance allergy status; Z88.1 Allergy status to other antibiotic agents; Z88.6 Allergy status to analgesic agent; Z79.82 Long term (current) use of aspirin
CPT/HCPCS: 59025; 84112; 99213

== ENCOUNTER 2024-02-17 20:47 | Inpatient (IN) | payer BC, OTHER ==
[2024-02-17] MEDS ORDERED: hydrALAZINE HCL 20 MG/ML 1 ML VIAL IVP PRN ×2 (21:30→23:39)
[2024-02-17] MEDS ORDERED: LABETALOL 5 MG/ML VIAL MDV IVP PRN ×3 (21:30→23:39)
[2024-02-17] MEDS: LABETALOL 5 MG/ML VIAL MDV IVP PRN ×2 (21:48→22:44)
[2024-02-17 22:24] LABS: Basophils % (A) 0 %; Eosinophils % (A) 0 %; HCT 35.1 % (34.0-46.0); HGB 11.5 gm/dL (11.4-16.0); Lymphocytes # (A) 2.5 k/uL (1.0-4.8); Lymphocytes % (A) 24 %; MCH 28.6 pg (25.0-35.0); MCHC 32.8 g/dL (31.0-37.0); MCV 87.3 fL (80.0-100.0); Mean Platelet Volume 9.2; Monocytes % (A) 9 %; Neutrophils # (A) 6.6 k/uL (1.3-7.7); Neutrophils % (A) 62 %; Platelet Count 375 k/uL (150-450); RBC 4.02 m/uL (3.80-5.40); RDW 13.4 % (11.5-15.5); WBC 10.7 k/uL (3.8-10.6)
[2024-02-17 22:34] LABS: Appearance,Urine Cloudy (Clear); Bacteria,Urine Rare /hpf; Bilirubin,Urine Negative (Negative); Blood,Urine Negative (Negative); Color,Urine Yellow; Glucose,Urine (UA) Negative (Negative); Hyaline Casts,Urine 1 /lpf (0-2); Ketones,Urine Negative (Negative); Leukocyte Esterase,Urine Small (Negative); Mucus,Urine Moderate /hpf; Nitrite,Urine Negative (Negative); Protein,Urine 1+ (Negative); RBC,Urine 1 /hpf (0-5); Specific Gravity,Urine 1.032 (1.001-1.035); Squamous Epithelial Cell,Urine 8 /hpf (0-4); WBC,Urine 6 /hpf (0-5)
[2024-02-17 22:35] LABS: INR 0.8 (<1.2); Partial Thromboplastin Time 24.4 sec (22.0-30.0); Prothrombin Time 9.4 sec (10.0-12.5)
[2024-02-17 22:41] LABS: ALT 10 U/L (4-34); AST 15 U/L (14-36); African American GFR (CKD) >90 (>60 ml/min/1.73 sqM); Blood Urea Nitrogen 12 mg/dL (7-17); LDH 172 U/L (120-246); Magnesium 1.8 mg/dL (1.6-2.3); Non-African American GFR(CKD) >90 (>60 ml/min/1.73 sqM); Uric Acid 5.2 mg/dL (3.7-7.4)
[2024-02-17 22:42] LABS: Creatinine,Urine Random 184.8 mg/dL; Protein/Creatinine Ratio,Urine 0.287
[2024-02-17] MEDS ORDERED: CALCIUM CARBONATE 500 MG CHEWABLE PO PRN (23:00)
[2024-02-18] MEDS: BETAMET ACET-BETAMETH SOD PHOS 6 MG/ML MDV IM SCH (00:06)
[2024-02-18] MEDS: hydrALAZINE HCL 20 MG/ML 1 ML VIAL IVP PRN (00:07)
[2024-02-18] MEDS: hydrALAZINE HCL 20 MG/ML 1 ML VIAL IVP STA ×3 (03:09→18:46)
[2024-02-18] MEDS: ACETAMINOPHEN TAB 325 MG TAB PO PRN (07:26)
[2024-02-18] MEDS: CLINDAMYCIN 900 MG in DEXTROSE 5% IN WATER 50 ML IVPB SCH (09:06)
[2024-02-18] MEDS: MAGNESIUM SULFATE GM 6 GM in SODIUM CHLORIDE 0.9% 100 ML IVPB ONE (09:13)
--- NOTE | 2024-02-18 09:19 | P.HPOB ---
History of Present Illness H&P Date: 02/18/24 Chief Complaint: severe range blood pressures Ms. Mckeon is a 23 year old at 36 weeks and 0 days with EDC of 03/17/2024 who presented to labor and delivery for rule out labor and was found to have severe-range blood pressures 150s-180s/90s-100s. She was also complaining of a headache on admission. She required IV labetalol (60mg) and IV hydralazine (10mg) to stabilize blood pressures overnight. This morning the patient states headache has resolved, she is still having high mild-range blood pressures 150s/90s. Her P:C ratio was 0.298 and PIH labs were otherwise within normal limits. She received one dose of Celestone around midnight. She is feeling normal movement, occassional uterine contractions, denies leakage of fluid, and denies vaginal bleeding. A 32 week growth US of the fetus estimated weight to be in the 61%ile. The was also complicated by maternal anxiety and depression for which she takes 100mg of Effexor daily. Additionally, the patient refused to take the 1 hour glucose tolerance test and instead followed 4-times daily blood sugars which were within normal limits over the course of 2 weeks. work-up: blood type A positive, antibody negative, rubella immune, VDRL non-reactive, HIV negative, HBsAg negative, HCV Ab negative, gonorrhea negative, chlamydia negative, GBS UNKNOWN. s/p TDap. Past Medical History Past Medical History: Thyroid Disorder Additional Past Medical History / Comment(s): PCOS, MENSTRUAL PERIODS HEAVY AND PAINFUL, CHRONIC BACK PAIN-SEES CHIROPRACTOR,. childhood asthma- resolved History of Any Multi-Drug Resistant Organisms: None Reported Past Surgical History: Cholecystectomy, Orthopedic Surgery Additional Past Surgical History / Comment(s): bone removed from ankle (10 or 11 yrs old) Past Anesthesia/Blood Transfusion Reactions: No Reported Reaction Additional Past Anesthesia/Blood Transfusion Reaction / Comment(s): RARE MOTION SICKNESS Past Psychological History: Anxiety Additional Psychological History / Comment(s): medicated Smoking Status: Vaper Past Alcohol Use History: None Reported Past Drug Use History: None Reported - Past Family History Mother Family Medical History: Fibromyalgia Brother(s) Additional Family Medical History / Comment(s): adhd Medications and Allergies Home Medications Medication Instructions Recorded Confirmed Type metFORMIN HCL ER [Glucophage Xr] 500 mg PO DAILY 12/17/19 02/17/24 History Venlafaxine HCl [Effexor XR] 100 mg PO DAILY 03/27/21 02/17/24 History Levothyroxine Sodium [Synthroid] 25 mcg PO DAILY 10/20/22 02/17/24 History Aspirin [[place] Aspirin EC] 1 tab PO DAILY 11/21/23 02/17/24 History Allergies Allergy/AdvReac Type Severity Reaction Status Date / Time metoclopramide [From Reglan] Allergy Intermediate Unknown Verified 02/17/24 20:55 amoxicillin Allergy Rash/Hives Verified 02/17/24 20:55 all over cephalexin [From Keflex] Allergy Rash/Hives Verified 02/17/24 20:55 Penicillins Allergy Rash/Hives Verified 02/17/24 20:55 adhesive tape AdvReac PAPER & Verified 02/17/24 20:55 PLASTIC IRRITATE SKIN AND ADHESIVE PEELS SKIN. Exam Vital Signs Temp Pulse Resp BP Pulse Ox 02/18/24 02:20 16 02/17/24 21:06 135/80 02/17/24 21:02 74 149/97 02/17/24 20:54 97.2 F L 81 16 159/99 97 Intake and Output 02/17/24 02/18/24 02/18/24 22:59 06:59 14:59 Other: # Voids 3 Weight 115.212 kg 115.212 kg Focused physical exam is performed. This is a healthy-appearing in no apparent distress. Abdomen is soft, non-tender, gravid. Cervical exam per RN is 3/60/-3. Extremities are non-tender and non-edematous. NST is reactive and reassuring, tocometer is not graphing contractions well. Results Result Diagrams: 02/17/24 21:45 02/17/24 21:45 Abnormal Lab Results - Last 24 Hours (Table) 02/17/24 02/17/24 02/17/24 Range/Units 21:45 21:45 21:45 WBC 10.7 H (3.8-10.6) k/uL PT 9.4 L (10.0-12.5) sec Fibrinogen 540 H (200-500) mg/dL Creatinine (0.52-1.04) mg/dL Urine Appearance Cloudy H (Clear) Urine Protein 1+ H (Negative) Ur Leukocyte Esterase Small H (Negative) Urine WBC 6 H (0-5) /hpf Ur Squamous Epith Cells 8 H (0-4) /hpf Urine Bacteria Rare H (None) /hpf Urine Mucus Moderate H (None) /hpf 02/17/24 Range/Units 21:45 WBC (3.8-10.6) k/uL PT (10.0-12.5) sec Fibrinogen (200-500) mg/dL Creatinine 0.49 L (0.52-1.04) mg/dL Urine Appearance (Clear) Urine Protein (Negative) Ur Leukocyte Esterase (Negative) Urine WBC (0-5) /hpf Ur Squamous Epith Cells (0-4) /hpf Urine Bacteria (None) /hpf Urine Mucus (None) /hpf Assessment and Plan Assessment: 23 year old at 36 weeks and 0 days with gestational hypertension with severe-features being medically induced Plan: Admit, NPO, IV Mag Sulfate for seizure ppx, Pitocin per protocol, IV antibiotics for GBS ppx per pharmacy (allergies to Keflex, PCN), plan for AROM 4 hours after first dose of abx. Continuous EFM, tocometer. Close monitoring of patient. Epidural prn. Time with Patient: Less than 30
[2024-02-18] MEDS: MAGNESIUM SULFATE-WATER PMX 20 GM in WATER FOR INJECTION 1 500ML.BAG IV SCH (09:46)
[2024-02-18] MEDS: ACETAMINOPHEN IV (For NPO) 1,000 MG in EMPTY BAG 1 BAG IVPB STA (17:14)
[2024-02-18] MEDS: CITRIC ACID-SODIUM CITRATE 15 ML CUP PO ONE (21:49)
[2024-02-18] MEDS ORDERED: ONDANSETRON 4 MG/2 ML VIAL ONE (22:03)
[2024-02-18] MEDS ORDERED: OXYTOCIN 30 UNITS/500 ML NS BAG IV ONE (22:03)
[2024-02-18] MEDS ORDERED: KETOROLAC 15 MG/ML 1 ML VIAL ONE (22:03)
[2024-02-18] MEDS ORDERED: METHYLERGONOVINE 0.2 MG/ML 1 ML AMP ONE (22:03)
[2024-02-18] MEDS ORDERED: SUCCINYLCHOLINE CHLORIDE 200 MG/10 ML VIAL IV ONE (22:03)
[2024-02-18] MEDS ORDERED: fentaNYL (PF) 50 MCG/ML 2 ML AMP ONE (22:03)
[2024-02-18] MEDS ORDERED: HYDROmorphone (PF) 1 MG/ML ONE (22:03)
[2024-02-18] MEDS ORDERED: PROPOFOL 10 MG/ML 20 ML VIAL IV ONE (22:03)
[2024-02-18] MEDS ORDERED: diphenhydrAMINE 50 MG/ML 1 ML VIAL IVP PRN ×2 (22:57)
[2024-02-18] MEDS ORDERED: METOCLOPRAMIDE 5 MG/ML 2 ML VIAL IVP PRN (22:57)
[2024-02-18] MEDS ORDERED: NALOXONE 0.4 MG/ML 1 ML VIAL IV PRN (22:57)
[2024-02-18] MEDS ORDERED: diphenhydrAMINE 25 MG CAP PO PRN (22:57)
[2024-02-18] MEDS ORDERED: SIMETHICONE 80 MG CHEWABLE PO PRN (22:57)
[2024-02-18] MEDS ORDERED: ZOLPIDEM 5 MG TAB PO PRN (22:57)
[2024-02-18] MEDS ORDERED: ONDANSETRON 4 MG/2 ML VIAL IVP PRN (22:57)
[2024-02-18] MEDS ORDERED: diphenhydrAMINE 50 MG CAP PO PRN (22:57)
--- NOTE | 2024-02-18 22:57 | P.OP ---
Date of Procedure: 02/18/24 Preoperative Diagnosis: 1. IUP at 36 weeks 2. Maternal request for section Postoperative Diagnosis: Same Procedure(s) Performed: Primary Lower Transverse Section Implants: None Anesthesia: JOHNNIE Surgeon: Laura Newby Assembler Carbon Brushes #1: Shobha Turner Estimated Blood Loss (ml): 644 IV fluids (ml): 800 Urine output (ml): 200 (clear yellow) Pathology: none sent Condition: stable Disposition: floor Indications for Procedure: Ms. Mckeon is a 23 year old at 36 weeks and 0 days who presented to labor and delivery for rule out labor and was noted to have severe-range blood pressures. Pre-eclampsia lab work was within normal limits except a high normal urine protein level at nearly 0.3. The patient required IV pushes of Labetalol and Hydralazine to control blood pressures. The patient was also complaining about a headache on arrival. Delivery was recommended for gestational hypertension with severe features. Magnesium Sulfate was started for seizure prophylaxis. Pitocin was started and titrated per protocol. IV Clindamycin was given for GBS unknown status until a negative result came back. AROM was undertaken at 1247 revealing clear amniotic fluid. The patient was not a candidate for an epidural due to a history of spina bifida. The patient progressed to 6 centimeters and was noted to have a labor dystocia making slow cervical change. After 3 hours with no cervical change and inadequate pain control despite use of nitrous oxide, the patient requested a section. The risks, benefits, and alternatives to section were discussed with the patient including risk of bleeding, infection, damage to surrounding structures including bladder/bowels/ureters, and post-operative VTE. The patient understands these risks and desires to proceed with section. Operative Findings: Clear amniotic fluid. in right occiput transverse position at delivery. Viable female infant delivered with scores of 8 and 9 at 1- and 5-minutes respectively. The infant weighed 5 pounds and 1 ounces (2310 grams). The uterus, bilateral fallopian tubes, and bilateral ovaries were grossly normal. Description of Procedure: The patient was taken to the operating room where general anesthesia was established. IV Gentamicin and Clindamycin were given for infection prophylaxis. Vaginal prep was performed prior to the surgery. She was prepared and draped in the dorsal supine position with a leftward tilt. A Pfannenstiel skin incision was made with the scalpel. The incision was carried down to the fascia with a bovie. The fascia was incised and extended laterally with Winters scissors. The superior aspect of the fascia was grasped with Temo clamps. The underlying rectus muscle was dissected off sharply with Winters scissors. In a similar fashion, the inferior aspect of the fascia was elevated with Temo clamps and the rectus muscle and pyramidalis were dissected off. Excellent hemostasis was achieved with the bovie. The rectus muscle was in the midline down to the level of the pubic symphysis. Pre-peritoneal fatty tissue was bluntly dissected to expose the peritoneum. The peritoneum was found to be free of adherent bowel and entered sharply with Winters scissors. The peritoneal incision was extended superiorly and inferiorly to the bladder reflection with good visualization of the bladder. The bladder blade was inserted and vesicouterine peritoneum was identified. Intraabdominal survey revealed scant, clear peritoneal fluid and the thinned-out lower uterine segment. The bladder blade was repositioned to keep the bladder out of the operative field. The lower uterine segment was incised with a scalpel. Clear amniotic fluid was noted. The uterine incision was extended bluntly with lateral and upward traction. The fetus was in right occiput transverse position. The head was elevated out of the pelvis with special attention paid to avoid using the uterine incision as a fulcrum. Gentle fundal pressure was applied once the head was brought into the incision. The was delivered with no difficulty. The mouth and nose were suctioned with a bulb. The cord was clamped and cut. was noted to be spontaneously crying. The was handed off to the operation research analyst. IV oxytocin was initiated to facilitate uterine contractions. There was an umbilical cord avulsion during delivery of the placenta, thus the placenta was delivered manually and noted to be intact otherwise. The uterus was then exteriorized and the inside of the uterus was gently wiped with a lap sponge to assure complete removal of placental membranes. The uterine incision was closed with a 0- Polysorb suture in a running locked fashion. The uterus was noted to be boggy and atonic, so a dose of IV Methergine was given to improve contractility. A second imbricating layer of 0-Polysorb was placed along the incision. The ovaries and tubes were found to be normal. The uterus, tubes, and ovaries were then gently returned to the abdominal cavity. The blood clots and fluid were wiped out of the abdomen and pelvis with moist laparotomy sponges. A figure of eight suture was placed in the center of the hysterotomy to facilitate hemostasis. The pelvis was copiously suction irrigated.The uterine incision was reinspected and excellent hemostasis was noted. The fascial layer was closed with a 0-Vicryl suture. The subcutaneous tissue was reapproximated with 2-0 Plain Gut. The skin was closed with 4-0 Monocryl in a subcuticular fashion. The patient tolerated the procedure well. All the counts were correct times two. The patient was taken to the recovery room in a stable condition.
[2024-02-18] MEDS: CLINDAMYCIN 900 MG in DEXTROSE 5% IN WATER 50 ML IVPB ONE (23:21)
[2024-02-18] MEDS: GENTAMICIN 400 MG in SODIUM CHLORIDE 0.9% 100 ML IVPB ONE (23:21)
[2024-02-18] MEDS: MORPHINE PCA 50 MG/50 ML BAG IV PRN (23:52)
[2024-02-18] MEDS: LACTATED RINGERS 1,000 ML IV SCH ×2 (23:54)
[2024-02-18] MEDS: OXYTOCIN 30 UNITS/500 ML NS 30 UNIT in SALINE 1 500ML.BAG IV SCH (23:55)
[2024-02-19] MEDS: hydrALAZINE HCL 20 MG/ML 1 ML VIAL IVP ONE (01:14)
[2024-02-19] MEDS: ACETAMINOPHEN TAB 500 MG TAB PO SCH (06:34)
[2024-02-19] MEDS: NIFEdipine XL 30 MG TAB.ER.24 PO SCH (08:13)
[2024-02-19] MEDS: SENNOSIDES-DOCUSATE SODIUM 1 EACH TAB PO SCH (08:19)
[2024-02-19] MEDS: IBUPROFEN 600 MG TAB PO SCH (09:12)
[2024-02-19] MEDS: KETOROLAC 15 MG/ML 1 ML VIAL IVP SCH (09:18)
[2024-02-19 09:35] LABS: Basophils % (A) 0 %; Eosinophils % (A) 0 %; HGB 13.4 gm/dL (11.4-16.0); Lymphocytes # (A) 1.6 k/uL (1.0-4.8); Lymphocytes % (A) 10 %; MCHC 32.6 g/dL (31.0-37.0); MCV 88.7 fL (80.0-100.0); Mean Platelet Volume 9.4; Monocytes # (A) 1.3 k/uL (0-1.0); Monocytes % (A) 8 %; Neutrophils # (A) 12.5 k/uL (1.3-7.7); Neutrophils % (A) 78 %; Platelet Count 466 k/uL (150-450); RBC 4.63 m/uL (3.80-5.40); RDW 13.6 % (11.5-15.5); WBC 15.9 k/uL (3.8-10.6)
--- NOTE | 2024-02-19 12:32 | P.PNOBGPC ---
Subjective - Subjective Principal diagnosis: s/p primary section for maternal request Interval history: Patient did well overnight. magnesium discharged this morning. Patient denies headache, visual disturbances, and right upper quadrant pain. She is ambulating and tolerating PO. We are awaiting void after rivera was removed a few hours ago. The patient is her daughter without difficulty. She has vaginal lochia about as heavy as menses. She denies lightheadedness with ambulation. She denies chest pain, shortness of breath, fevers, chills, pain/swelling in the legs. Blood pressures have been mild range this morning after Procardia XL 30mg at 900. Patient reports: Reports appetite normal, Reports pain well controlled, Reports ambulating normally, Reports other (awaiting void) [place]: doing well Objective - Vital Signs Latest vital signs: Vital Signs Temp Pulse Resp BP Pulse Ox 02/19/24 11:56 97.9 F 80 18 149/99 02/19/24 11:00 141/98 02/19/24 10:59 80 18 148/96 02/19/24 10:08 97.5 F L 79 18 145/88 02/19/24 10:04 165/97 02/19/24 09:00 94 18 144/87 02/19/24 08:12 97.5 F L 79 18 157/109 02/19/24 08:00 18 153/103 02/19/24 07:53 97.8 F 82 18 144/91 02/19/24 06:00 80 16 146/89 02/19/24 05:00 90 16 148/98 02/19/24 04:00 97.9 F 97 16 155/99 02/19/24 03:00 90 16 141/90 02/19/24 02:00 90 16 144/92 02/19/24 00:50 97.5 F L 89 16 160/86 98 02/19/24 00:35 91 16 160/90 98 02/19/24 00:20 83 16 154/94 97 02/19/24 00:05 16 154/93 96 02/18/24 23:50 16 154/96 96 02/18/24 23:35 16 159/98 95 02/18/24 23:20 16 154/95 95 02/18/24 23:05 88 16 159/94 95 02/18/24 22:50 98.4 F 103 H 16 133/74 93 L 02/18/24 19:00 98.3 F 94 20 120/77 100 02/18/24 18:30 92 18 162/112 98 02/18/24 18:10 92 18 160/103 02/18/24 18:00 98.3 F 18 168/114 02/18/24 17:30 98.0 F 92 18 145/94 02/18/24 17:00 104 H 20 150/93 99 02/18/24 16:30 110 H 20 153/103 98 02/18/24 16:00 20 141/100 02/18/24 15:30 98.2 F 88 18 165/102 02/18/24 15:00 98.2 F 85 18 168/99 02/18/24 14:33 153/104 02/18/24 14:30 93 18 158/105 100 02/18/24 14:00 98.2 F 85 18 128/79 02/18/24 13:30 98.2 F 90 18 136/87 97 02/18/24 13:00 18 141/91 02/18/24 12:30 89 18 126/82 Intake and Output 02/18/24 02/19/24 02/19/24 22:59 06:59 14:59 Intake Total 458.333 455.833 960 Output Total 507 608 5788 Balance -185.667 -90.167 -2440 Intake: Intake, IV Titration 458.333 455.833 Amount Magnesium Sulfate-Water 458.333 455.833 Pmx 20 gm In Water For Injection 1 500ml.bag @ 2 GM/HR 50 mls/hr IV .Q10H [facility] Rx#:[id number] Oral 960 Output: Urine 400 3400 Uretheral (Rivera) 1600 Estimated Blood Loss 644 Output, Quantitative 146 Blood Loss Other: Voiding Method Indwelling Catheter Indwelling Catheter Indwelling Catheter - Exam Extremities: Present: normal Abdomen: Present: normal appearance, soft Incision: Present: normal, dressed Uterus: Present: normal, firm - Labs Labs: Abnormal Lab Results - Last 24 Hours (Table) 02/19/24 Range/Units 08:31 WBC 15.9 H (3.8-10.6) k/uL Plt Count 466 H (150-450) k/uL Neutrophils # 12.5 H (1.3-7.7) k/uL Monocytes # 1.3 H (0-1.0) k/uL Assessment and Plan Assessment: 23 year old now POD#1 s/p 1LTCS 2/2 maternal request Plan: 1. Postoperative. Continue to monitor. Await void. 2. Gestational HTN with severe features. Procardia XL 30mg BID. BPs currently mild-range. No pre-e s/s. 3. Viable female infant. At [facility], doing well, nursing well. Dispo: Anticipate discharge home tomorrow if BPs well controlled.
[2024-02-19] MEDS ORDERED: ALPRAZolam 0.25 MG TAB PO PRN (19:31)
[2024-02-19] MEDS: NIFEdipine 10 MG CAP PO SCH (20:57)
[2024-02-20 04:09] VITALS: RESP 16
--- NOTE | 2024-02-20 08:36 | P.DS ---
Providers Date of admission: 02/18/24 08:24 Expected date of discharge: 02/20/24 Attending physician: Laura Newby MD Primary care physician: Stated None Hospital Course: Ms. Mckeon is a 23 year old now POD#2 s/p primary section secondary to maternal request. The patient was induced at 36 weeks for gestational hypertension with severe features. She did have magnesium sulfate during labor and for 24 hours for seizure prophylaxis. Her blood pressures are now stable on a regimen of Procardia XL 30mg BID. The patient denies headache, visual disturbances, and RUQ pain. The patient is doing well this morning and had no acute events overnight. She has no complaints this morning. She reports minimal lochia, passing flatus, voiding without difficulty, ambulating, and eating/drinking without nausea or vomiting. Infant doing well at bedside. She denies chest pain, shortness of breathing, fevers, or chills overnight. She denies pain or swelling in the legs. Postoperative restrictions are reviewed with the patient including pelvic rest for 6 weeks, no lifting heavier than 15 pounds for 6 weeks. The patient is encouraged to call the office if she experiences any heavy bleeding, foul-smelling discharge, breast complaints, or any if she has any other concerns. She will follow up in the office in 1 week for blood pressure check. She will go home with Procardia XL 30mg BID a 30-day supply, Motrin, Tylenol, and 18 tablets of Oxycodone prn for breakthrough pain. All questions are answered. Plan - Discharge Summary New Discharge Prescriptions: New Acetaminophen Tab [Tylenol] 650 mg PO Q6H PRN #30 tab PRN Reason: Mild Pain (Scale 1 To 3) Ibuprofen [Motrin] 600 mg PO Q6HR PRN #30 tab PRN Reason: Mild Pain (Scale 1 To 3) oxyCODONE HCL [Roxicodone] 5 mg PO Q6HR PRN 3 Days #12 tab PRN Reason: Breakthrough Pain No Action metFORMIN HCL ER [Glucophage Xr] 500 mg PO DAILY Venlafaxine HCl [Effexor XR] 100 mg PO DAILY Levothyroxine Sodium [Synthroid] 25 mcg PO DAILY Aspirin [[place] Aspirin EC] 1 tab PO DAILY Discharge Medication List metFORMIN HCL ER [Glucophage Xr] 500 mg PO DAILY 12/17/19 [History] Venlafaxine HCl [Effexor XR] 100 mg PO DAILY 03/27/21 [History] Levothyroxine Sodium [Synthroid] 25 mcg PO DAILY 10/20/22 [History] Aspirin [[place] Aspirin EC] 1 tab PO DAILY 11/21/23 [History] Acetaminophen Tab [Tylenol] 650 mg PO Q6H PRN #30 tab 02/20/24 [Rx] Ibuprofen [Motrin] 600 mg PO Q6HR PRN #30 tab 02/20/24 [Rx] oxyCODONE HCL [Roxicodone] 5 mg PO Q6HR PRN 3 Days #12 tab 02/20/24 [Rx] Follow up Appointment(s)/Referral(s): Laura Newby MD [STAFF PHYSICIAN] - 1 Week (blood pressure check) Activity/Diet/Wound Care/Special Instructions: Instructions 1. Do not begin any exercise program for 3 weeks. 2. Do not resume sexual relations for 6 weeks or longer if uncomfortable. 3. You may take tub baths or showers at any time. 4. You may use tampons if desired after 6 weeks. 5. Keep any areas repaired with stitches clean and dry. 6. If you are not nursing, wear a good fitting, supportive bra during the day and limit fluid intake for at least 1 week to prevent breast engorgement. 7. Call the office, , within the next week to make appointment for your 6 week checkup if it has not already been made. 8. Report any of the following occurrences to the doctor promptly: a. Heavy, excessive bleeding b. Chills, fever c. Burning or frequency of urination d. Pain or redness and breasts if nursing e. Increasing pain or swelling of vulva (stitches). In addition to the above instructions, the following additional should be followed: 1. No heavy lifting or straining (exercising) until after 6 week checkup. 2. Keep abdominal incision clean and dry: You may wear a dressing if more comfortable. 3. Make office appointment for 2 weeks after delivery date. Discharge Disposition: HOME SELF-CARE
[2024-02-20 09:15] VITALS: BP 136/96; PULSE 85; TEMP 97.9
== END 2024-02-20 15:25 | disposition home or self-care (01) | DRG 788 ==
LOC: FBPOP 20:47 → 4FBP 23:05 → OBSVTOIN 02-18 08:24
PROVIDERS: ADMIT Obstetrics & Gynecology; ATTEND Obstetrics & Gynecology
PROC: 10907ZC Drainage of Amniotic Fluid, Therapeutic from Products of Conception, Via Natural or Artificial Opening (ICD-10-PCS; 2024-02-18)
PROC: 10D00Z1 Extraction of Products of Conception, Low, Open Approach (ICD-10-PCS; principal; 2024-02-18 22:35)
DX: O13.4 Gestational [pregnancy-induced] hypertension without significant proteinuria, complicating childbirth (principal); F32.A Depression, unspecified; F41.9 Anxiety disorder, unspecified; O32.2XX0 Maternal care for transverse and oblique lie, not applicable or unspecified; O99.344 Other mental disorders complicating childbirth; Q05.9 Spina bifida, unspecified; Z37.0 Single live birth; Z3A.36 36 weeks gestation of pregnancy; Z79.82 Long term (current) use of aspirin; Z79.84 Long term (current) use of oral hypoglycemic drugs; Z79.890 Hormone replacement therapy; Z79.899 Other long term (current) drug therapy; Z88.1 Allergy status to other antibiotic agents; Z90.49 Acquired absence of other specified parts of digestive tract; Z88.8 Allergy status to other drugs, medicaments and biological substances; Z91.048 Other nonmedicinal substance allergy status
CPT/HCPCS: 59025; 81001; 82565; 82570; 83615; 83735; 84112; 84156; 84450; 84460; 84520; 84550; 85025; 85384; 85610; 85730; 99213

== ENCOUNTER → 2024-04-08 | Outpatient (CLI) | payer BC, OTHER ==
--- NOTE | 2024-04-08 12:14 | US ---
EXAMINATION TYPE: US transvaginal DATE OF EXAM: 04/08/2024 COMPARISON: US 2018 CLINICAL INDICATION: Female, 23 years old with history of O72.2 DELAYED AND SECONDARY HEMO RRHAGE; Patient is 7 weeks, states she bled for 4 weeks after giving , then no bleedi ng for 2 weeks, and now heavy bleeding x 1 week TECHNIQUE: Transvaginal only per patient's order Date of LMP: Unknown EXAM MEASUREMENTS: Uterus: 7.1 x 4.1 x 4.3 cm Endometrial Stripe: 0.6 cm Right Ovary: 2.2 x 2.5 x 1.6 cm Left Ovary: 2.2 x 1.2 x 2.1 cm 1. Uterus: retroverted 2. Endometrium: appears wnl 3. Right Ovary: wnl 4. Left Ovary: wnl 5. Bilateral Adnexa: wnl 6. Posterior cul-de-sac: free fluid IMPRESSION: 1. No evidence for acute process. 2. Endometrium within normal limits for thickness.
== END | disposition home or self-care (01) ==
LOC: RADUSWWP 11:05
PROVIDERS: ATTEND Family Medicine
DX: O72.2 Delayed and secondary postpartum hemorrhage (principal)
CPT/HCPCS: 76830

== ENCOUNTER 2024-11-26 11:43 | Emergency (ER) | payer OTHER, BC ==
[2024-11-26 12:10] VITALS: RESP 18; TEMP 98.2
--- NOTE | 2024-11-26 13:35 | XR ---
EXAMINATION TYPE: XR hand complete RT, XR wrist complete RT DATE OF EXAM: 11/26/2024 1:27 PM COMPARISON: None. CLINICAL INDICATION: Female, 24 years old with history of Pain, pain TECHNIQUE: Frontal, lateral and oblique images of the right wrist and hand hand are obtained. FINDINGS: No acute displaced fracture of the right wrist. The carpal joint spaces are maintained. Th ere is no acute fracture/dislocation evident in the right hand. The joint spaces in the right hand ap pear within normal limits. The overlying soft tissue appears unremarkable. IMPRESSION: No acute findings are evident. Unremarkable study. [facility], , 11/26/2024 1:33 PM
--- NOTE | 2024-11-26 13:58 | ED ---
Upper Extremity HPI - General Chief Complaint: Extremity Injury, Upper Stated Complaint: right arm injury, [facility] Time Seen by Provider: 11/26/24 12:20 Source: patient, RN notes reviewed Mode of arrival: ambulatory Limitations: no limitations - History of Present Illness Initial Comments: 24-year-old female presented the ER for evaluation of right thumb injury. Patient states she was at work today and the bed of a pickup truck when she has slipped and lost her balance. She states she attempted to grab onto a metal bar in the truck but her right thumb hit a steel plate instead. She states she felt a pop at that time to her right thumb and believed it was dislocated. She states she popped back into place. Patient is reporting pain and decreased range of motion to her right first digit. There is a overlying small abrasion patient states her tetanus is up-to-date. Patient has not taken anything for pain at this time. No other complaints or injuries. - Related Data Home Medications Medication Instructions Recorded Confirmed metFORMIN HCL ER [Glucophage Xr] 500 mg PO DAILY 12/17/19 02/17/24 Venlafaxine HCl [Effexor XR] 100 mg PO DAILY 03/27/21 02/17/24 Levothyroxine Sodium [Synthroid] 25 mcg PO DAILY 10/20/22 02/17/24 Aspirin [[place] Aspirin EC] 1 tab PO DAILY 11/21/23 02/17/24 Previous Rx's Medication Instructions Recorded Acetaminophen Tab [Tylenol] 650 mg PO Q6H PRN #30 tab 02/20/24 Ibuprofen [Motrin] 600 mg PO Q6HR PRN #30 tab 02/20/24 oxyCODONE HCL [Roxicodone] 5 mg PO Q6HR PRN 3 Days #12 tab 02/20/24 Allergies Allergy/AdvReac Type Severity Reaction Status Date / Time metoclopramide [From Reglan] Allergy Intermediate Unknown Verified 11/26/24 12:06 amoxicillin Allergy Rash/Hives Verified 11/26/24 12:06 all over cephalexin [From Keflex] Allergy Rash/Hives Verified 11/26/24 12:06 Penicillins Allergy Rash/Hives Verified 11/26/24 12:06 adhesive tape AdvReac PAPER & Verified 11/26/24 12:06 PLASTIC IRRITATE SKIN AND ADHESIVE PEELS SKIN. Review of Systems ROS Statement: Those systems with pertinent positive or pertinent negative responses have been documented in the HPI. ROS Other: All systems not noted in ROS Statement are negative. Past Medical History Past Medical History: Thyroid Disorder Additional Past Medical History / Comment(s): PCOS, MENSTRUAL PERIODS HEAVY AND PAINFUL, CHRONIC BACK PAIN-SEES CHIROPRACTOR,. childhood asthma- resolved History of Any Multi-Drug Resistant Organisms: None Reported Past Surgical History: Cholecystectomy, Orthopedic Surgery Additional Past Surgical History / Comment(s): bone removed from ankle (10 or 11 yrs old) Past Anesthesia/Blood Transfusion Reactions: No Reported Reaction Additional Past Anesthesia/Blood Transfusion Reaction / Comment(s): RARE MOTION SICKNESS Past Psychological History: Anxiety Smoking Status: Vaper Past Alcohol Use History: None Reported Past Drug Use History: None Reported - Past Family History Mother Family Medical History: Fibromyalgia Brother(s) Additional Family Medical History / Comment(s): adhd General Exam Limitations: no limitations General appearance: alert, in no apparent distress Respiratory exam: Present: normal lung sounds bilaterally. Absent: respiratory distress, wheezes, rales, rhonchi, stridor Cardiovascular Exam: Present: regular rate, normal rhythm, normal heart sounds. Absent: systolic murmur, diastolic murmur, rubs, gallop, clicks Extremities exam: Present: tenderness (tenderness and edema to right first digit PIP joint along with thenar eminence. No anatomical snuffbox tenderness. There is a small abrasion to palmar aspect of thenar eminence. 2+ right radial pulse.), normal capillary refill Neurological exam: Present: alert, oriented X3, CN II-XII intact Skin exam: Present: warm, dry, intact, normal color. Absent: rash Course Vital Signs 11/26/24 11/26/24 12:03 14:17 Temperature 98.2 F Pulse Rate 91 84 Respiratory 18 18 Rate Blood Pressure 116/83 134/87 O2 Sat by Pulse 99 97 Oximetry Procedures - Orthopedic Splinting/Casting Injury #1 Side: right Upper Extremity Injury Location: hand Upper Extremity Immobilizer: thumb spica Medical Decision Making - Medical Decision Making Was pt. sent in by a medical professional or institution (, PA, POSTAL SERVICE CLERK, urgent care, hospital, or [facility]...) When possible be specific @ -No Did you speak to anyone other than the patient for history (EMS, parent, family, police, friend...)? What history was obtained from this source @ -No Did you review nursing and triage notes (agree or disagree)? Why? @ -I reviewed and agree with nursing and triage notes Were old charts reviewed (outside hosp., previous admission, EMS record, old EKG, old radiological studies, urgent care reports/EKG's, [facility] records)? Report findings @ -No old charts were reviewed Differential Diagnosis (chest pain, altered mental status, abdominal pain women, abdominal pain men, vaginal bleeding, weakness, fever, dyspnea, syncope, headache, dizziness, GI bleed, back pain, seizure, CVA, palpatations, mental health, musculoskeletal)? @ -Differential Musculoskeletal: Muscular strain, contusion, ligament sprain, fracture, arthritis, septic arthritis, bursitis, cellulitis, muscle spasm, nerve compression, DVT, arterial occlusion, herpes zoster, electrolyte abnormality, tumor.... This is not meant to be in all inclusive list EKG interpreted by me (3pts min.). @ -None done X-rays interpreted by me (1pt min.). @ -Right hand and wrist x-ray interpreted by me negative for acute fractures or dislocations. CT interpreted by me (1pt min.). @ -None done U/S interpreted by me (1pt. min.). @ -None done What testing was considered but not performed or refused? (CT, X-rays, U/S, labs)? Why? @ -None What meds were considered but not given or refused? Why? @ -None Did you discuss the management of the patient with other professionals (professionals i.e. , PA, POSTAL SERVICE CLERK, lab, RT, psych nurse, social science instructor, systems analyst engineer, teacher, fisheries technical officer, pillowcase maker)? Give summary @ -No Was smoking cessation discussed for >3mins.? @ -No Was critical care preformed (if so, how long)? @ -No Were there social determinants of health that impacted care today? How? (Homelessness, low income, unemployed, alcoholism, drug addiction, transportation, low edu. Level, literacy, decrease access to med. care, half-way, rehab)? @ -No Was there de-escalation of care discussed even if they declined (Discuss DNR or withdrawal of care, Hospice)? DNR status @ -No What co-morbidities impacted this encounter? (DM, HTN, Smoking, COPD, CAD, Cancer, CVA, ARF, Chemo, Hep., AIDS, mental health diagnosis, sleep apnea, morbid obesity)? @ -None Was patient admitted / discharged? Hospital course, mention meds given and route, prescriptions, significant lab abnormalities, going to OR and other pertinent info. @ -Discharge. 24-year-old female presented to ER for evaluation of right thumb injury. Upon rooming, history and physical exam completed. Vitals within acceptable limits. Patient in no signs of acute distress. Right upper extremity neurovascular intact. There is edema and tenderness to right PIP joint and thenar eminence with an overlying abrasion. Patient's tetanus is up-to-date. X-rays obtained negative. Patient will be placed in a thumb spica splint given concern of possible dislocation with reduction prior to ER visit. Instructed patient to follow-up closely with orthopedics, referral given. Strict return parameters discussed. Patient discharged in stable condition with follow-up to PCP and orthopedics. Patient verbally expressed understanding and agreement with care plan. Case discussed with ED attending, Dr. Sol. Undiagnosed new problem with uncertain prognosis? @ -No Drug Therapy requiring intensive monitoring for toxicity (Heparin, Nitro, Insulin, Cardizem)? @ -No Were any procedures done? @ -Yes, splint Diagnosis/symptom? @ -Finger sprain rule out dislocation Acute, or Chronic, or Acute on Chronic? @ -Acute Uncomplicated (without systemic symptoms) or Complicated (systemic symptoms)? @ -Uncomplicated Side effects of treatment? @ -No Exacerbation, Progression, or Severe Exacerbation? @ -No Poses a threat to life or bodily function? How? (Chest pain, [place], [place], pneumonia, PE, COPD, DKA, ARF, appy, cholecystitis, CVA, Diverticulitis, Homicidal, Suicidal, threat to staff... and all critical care pts) @ -No - Radiology Data Radiology results: report reviewed, image reviewed Disposition Clinical Impression: Thumb sprain Disposition: HOME SELF-CARE Condition: Stable Instructions (If sedation given, give patient instructions): Finger Dislocation (ED) Additional Instructions: Follow-up with orthopedics. Return to the ER for any new or worsening symptoms. Is patient prescribed a controlled substance at d/c from ED?: No Referrals: Nalini Graves DO [Primary Care Provider] - 1-2 days Mathieu Jean MD [STAFF PHYSICIAN] - 1-2 days Time of Disposition: 13:58
[2024-11-26] MEDS: IBUPROFEN 600 MG TAB PO STA (14:13)
[2024-11-26 14:18] VITALS: BP 134/87; PULSE 84
== END 2024-11-26 14:18 | disposition home or self-care (01) ==
LOC: EC 11:43
DX: S63.601A Unspecified sprain of right thumb, initial encounter (principal); F17.290 Nicotine dependence, other tobacco product, uncomplicated; Z88.0 Allergy status to penicillin; Z88.8 Allergy status to other drugs, medicaments and biological substances; Z91.09 Other allergy status, other than to drugs and biological substances; W22.09XA Striking against other stationary object, initial encounter; Y99.0 Civilian activity done for income or pay
CPT/HCPCS: 29125; 99283

== ENCOUNTER → 2024-12-17 | Outpatient (CLI) | payer BC, OTHER ==
[2024-12-17 16:06] LABS: Chol/HDL Ratio 3.48 Ratio; LDL Cholesterol,Calculated 111.2 mg/dL (0.0-131.0)
[2024-12-17 16:56] LABS: Basophils # (A) 0.04 X 10*3/uL (0.00-0.10); Basophils % (A) 0.6 %; Eosinophils # (A) 0.07 X 10*3/uL (0.04-0.35); HCT 40.9 % (37.2-46.3); HGB 13.1 g/dL (12.0-15.0); Lymphocytes # (A) 2.38 X 10*3/uL (0.90-5.00); Lymphocytes % (A) 32.7 %; MCH 26.8 pg (27.0-32.0); MCV 83.8 FL (80.0-97.0); Mean Platelet Volume 11.1 FL (9.5-12.2); Monocytes # (A) 0.44 X 10*3/uL (0.20-1.00); Monocytes % (A) 6.1 %; NRBC Per 100 WBC 0 X 10*3/uL (0.00-0.01); Neutrophils # (A) 4.32 X 10*3/uL (1.80-7.70); Neutrophils % (A) 59.3 %; Platelet Count 410 X 10*3/uL (140-440); RBC 4.88 X 10*6/uL (4.10-5.20); RDW 14.9 % (11.5-14.5); WBC 7.27 X 10*3/uL (4.50-10.00)
[2024-12-17 17:08] LABS: ALT 27 U/L (8-44); AST 20 U/L (13-35); BUN/Creat Ratio 18.86 Ratio (12.00-20.00); Blood Urea Nitrogen 13.2 mg/dL (9.0-27.0); Carbon Dioxide 25.1 mmol/L (21.6-31.8); Chloride 102 mmol/L (96-109); Glucose 98 mg/dL (70-110); Potassium 4.7 mmol/L (3.5-5.5); Sodium 138 mmol/L (135-145)
[2024-12-17 17:09] LABS: Albumin 4.5 g/dL (3.8-4.9); Albumin/Globulin Ratio 1.61 Ratio (1.60-3.17); Alkaline Phosphatase 104 U/L (41-126); Globulin 2.8 g/dL (1.6-3.3); Total Bilirubin 0.2 mg/dL (0.3-1.2); Total Protein 7.3 g/dL (6.2-8.2)
== END | disposition home or self-care (01) ==
LOC: LABWHC1 08:22
PROVIDERS: ATTEND Family Medicine
DX: E28.2 Polycystic ovarian syndrome (principal); E03.9 Hypothyroidism, unspecified
CPT/HCPCS: 36415; 80053; 80061; 84443; 85025

== ENCOUNTER 2025-01-14 21:55 | Emergency (ER) | payer BC, OTHER ==
[2025-01-14 22:29] VITALS: PULSE 87; RESP 18
--- NOTE | 2025-01-14 22:46 | ED ---
Head Injury HPI - General Chief complaint: Head Injury Stated complaint: [facility]- Head injury Time Seen by Provider: 01/14/25 22:31 Source: patient, RN notes reviewed Mode of arrival: ambulatory Limitations: no limitations - History of Present Illness Initial comments: This is a 24-year-old female who presents to the emergency department for a head injury. Patient was at work and a sheep kicked her into a concrete wall. States that she went headfirst and has since had a headache. Also complains of neck pain. The creative services writer looked at her afterwards and they were concerned that her right pupil was slower to respond initially. States that she is nauseous and sensitive to both light and sound as well. Denies any loss of consciousness. MD Complaint: head injury - Related Data Home Medications Medication Instructions Recorded Confirmed metFORMIN HCL ER [Glucophage Xr] 500 mg PO DAILY 12/17/19 02/17/24 Venlafaxine HCl [Effexor XR] 100 mg PO DAILY 03/27/21 02/17/24 Levothyroxine Sodium [Synthroid] 25 mcg PO DAILY 10/20/22 02/17/24 Aspirin [[place] Aspirin EC] 1 tab PO DAILY 11/21/23 02/17/24 Previous Rx's Medication Instructions Recorded Acetaminophen Tab [Tylenol] 650 mg PO Q6H PRN #30 tab 02/20/24 Ibuprofen [Motrin] 600 mg PO Q6HR PRN #30 tab 02/20/24 oxyCODONE HCL [Roxicodone] 5 mg PO Q6HR PRN 3 Days #12 tab 02/20/24 Ketorolac [Toradol] 10 mg PO Q6HR PRN #15 tab 01/15/25 Ondansetron Odt [Zofran Odt] 4 mg PO Q8HR PRN #15 tab 01/15/25 methocarbamoL [Robaxin-750] 1,500 mg PO TID PRN #30 tab 01/15/25 Allergies/Adverse reactions: Allergies Allergy/AdvReac Type Severity Reaction Status Date / Time metoclopramide [From Reglan] Allergy Intermediate Unknown Verified 01/14/25 22:29 amoxicillin Allergy Rash/Hives Verified 01/14/25 22:29 all over cephalexin [From Keflex] Allergy Rash/Hives Verified 01/14/25 22:29 Penicillins Allergy Rash/Hives Verified 01/14/25 22:29 Review of Systems ROS Statement: Those systems with pertinent positive or pertinent negative responses have been documented in the HPI. ROS Other: All systems not noted in ROS Statement are negative. Past Medical History Past Medical History: Thyroid Disorder Additional Past Medical History / Comment(s): PCOS, MENSTRUAL PERIODS HEAVY AND PAINFUL, CHRONIC BACK PAIN-SEES CHIROPRACTOR,. childhood asthma- resolved History of Any Multi-Drug Resistant Organisms: None Reported Past Surgical History: Section, Cholecystectomy, Orthopedic Surgery Additional Past Surgical History / Comment(s): bone removed from ankle (10 or 11 yrs old) Past Anesthesia/Blood Transfusion Reactions: No Reported Reaction Additional Past Anesthesia/Blood Transfusion Reaction / Comment(s): RARE MOTION SICKNESS Past Psychological History: Anxiety Smoking Status: Vaper Past Alcohol Use History: None Reported Past Drug Use History: None Reported - Past Family History Mother Family Medical History: Fibromyalgia Brother(s) Additional Family Medical History / Comment(s): adhd General Exam Limitations: no limitations General appearance: alert, in no apparent distress Head exam: Present: atraumatic, normocephalic, normal inspection Eye exam: Present: normal appearance, PERRL, EOMI. Absent: scleral icterus, conjunctival injection, periorbital swelling Respiratory exam: Present: normal lung sounds bilaterally. Absent: respiratory distress, wheezes, rales, rhonchi, stridor Cardiovascular Exam: Present: regular rate, normal rhythm Neurological exam: Present: alert, oriented X3, CN II-XII intact Psychiatric exam: Present: normal affect, normal mood Skin exam: Present: warm, dry, intact, normal color. Absent: rash Course Vital Signs 01/14/25 22:25 Temperature 98.2 F Pulse Rate 87 Respiratory 18 Rate Blood Pressure 141/97 O2 Sat by Pulse 98 Oximetry Medical Decision Making - Medical Decision Making This is a 24-year-old female who presents to the emergency department for a head injury. Was pt. sent in by a medical professional or institution? @ -No Did you speak to anyone other than the patient for history? @ -No Did you review nursing and triage notes? @ -Yes, and I agree, it is accurate with regards to the patient's symptoms. Were old charts reviewed? @ -No Differential Diagnosis? @ -Differential Diagnosis Head Injury: Contusion, hematoma, intracranial hemorrhage, skull fracture, whiplash, concussion, this is not meant to be an all-inclusive list. EKG interpreted by me (3pts min.)? @ -Not obtained X-rays interpreted by me (1pt min.)? @ -Not obtained CT interpreted by me (1pt min.)? @ -Computed tomography scan of the brain/c-spine and facial bones obtained. My interpretation identifies no evidence of an acute intracranial hemorrhage, skull fracture, facial fracture, or cervical spine fracture. U/S interpreted by me (1pt. min.)? @ -Not obtained What testing was considered but not performed? (CT, X-rays, U/S, labs)? Why? @ -None What meds were considered but not given? Why? @ -None Did you discuss the management of the patient with other professionals? @ -No Did you reconcile home meds? @ -No Was smoking cessation discussed for >3mins.? @ -No Was critical care preformed (if so, how long)? @ -No Were there social determinants of health that impacted care today? How? (Homelessness, low income, unemployed, alcoholism, drug addiction, transportation, low edu. Level, literacy, decrease access to med. care, care home, rehab)? @ -No Was there de-escalation of care discussed even if they declined? (Discuss DNR or withdrawal of care, Hospice)? @ -No What co-morbidities impacted this encounter? (DM, HTN, Smoking, COPD, CAD, Cancer, CVA, Hep., AIDS, mental health diagnosis, sleep apnea, morbid obesity)? @ -None Was patient admitted / discharged? @ -Discharged. CT scan of the brain/c-spine and facial bones obtained revealing no acute process. Symptoms were managed in the emergency department and she was discharged home in stable condition. Prescription for Toradol, Robaxin, and Zofran provided for additional symptomatic management. Case discussed with ED attending Dr. Harris. Return precautions reviewed in depth, the patient is instructed to return to the emergency department with any new, worsening, or concerning symptoms. Patient verbalized understanding. Undiagnosed new problem with uncertain prognosis? @ -None Drug Therapy requiring intensive monitoring for toxicity (Heparin, Nitro, Insulin, Cardizem)? @ -None Were any procedures done? @ -None Diagnosis/symptom? @ -Head injury, neck pain Acute, or Chronic, or Acute on Chronic? @ -Acute Uncomplicated (without systemic symptoms) or Complicated (systemic symptoms)? @ -Uncomplicated Side effects of treatment? @ -None Exacerbation, Progression, or Severe Exacerbation] @ -Not applicable Poses a threat to life or bodily function? @ -No - Radiology Data Radiology results: report reviewed, image reviewed Disposition Clinical Impression: Head injury, Neck pain Disposition: HOME SELF-CARE Instructions (If sedation given, give patient instructions): Head Injury (ED) Additional Instructions: Return to the emergency department with any new, worsening, or concerning symptoms. Take the Toradol with Tylenol as needed for pain relief. If you choose to take the Toradol, do not take any other anti-inflammatories such as ibuprofen, take one or the other. Take the Robaxin as 1 to 2 tablets up to 3-4 times daily. Take the Zofran up to every 8 hours as needed for nausea and vomiting. Follow up with your primary care provider in 1-2 days. Prescriptions: methocarbamoL [Robaxin-750] 1,500 mg PO TID PRN #30 tab PRN Reason: Pain Ketorolac [Toradol] 10 mg PO Q6HR PRN #15 tab PRN Reason: Pain Ondansetron Odt [Zofran Odt] 4 mg PO Q8HR PRN #15 tab PRN Reason: Nausea And Vomiting Is patient prescribed a controlled substance at d/c from ED?: No Referrals: Nalini Graves DO [Primary Care Provider] - 1-2 days Time of Disposition: 00:04
[2025-01-14] MEDS: KETOROLAC 15 MG/ML 1 ML VIAL IM STA (22:52)
[2025-01-14] MEDS: ACETAMINOPHEN TAB 500 MG TAB PO STA (22:54)
[2025-01-14] MEDS: ONDANSETRON ODT 4 MG TAB PO STA (22:55)
[2025-01-14] MEDS: methocarbamoL 750 MG TAB PO STA (23:42)
--- NOTE | 2025-01-14 23:49 | CT ---
EXAMINATION TYPE: CT brain cspine wo con, CT facial bones wo con DATE OF EXAM: 01/14/2025 COMPARISON: NONE HISTORY: Injury with pain Automated Exposure Control for Dose Reduction was Utilized. TECHNIQUE: CT scan of the head, facial bones, and cervical spine are performed without contrast. FINDINGS: There is no acute intracranial hemorrhage, mass effect, or midline shift identified. The ventricles and sulci are within normal limits in size. Mckinney-white matter differentiation is maintain ed. The calvarium is intact. The mandible is intact. Temporomandibular joints are maintained bilaterally. Zygomatic arches are int act. The nasal bones are intact. The orbital floors and jin are intact. The globes are intact bilat erally. Intraconal fat is preserved bilaterally. The pterygoid plates are intact. There is tiny 4 to 5 mm mucous retention cyst or polyp in the posterior right maxillary sinus axial image 45 otherwise p aranasal sinuses are clear. No suspicious focal soft tissue swelling or hematoma. Cervical spine is visualized in its entirety from C1 through upper thoracic levels and demonstrates s traightened alignment without evidence of acute fracture or dislocation. Prevertebral soft tissue ap pears within normal limits. The C1-C2 articulation is within normal limits on the coronal images. V ertebral body heights and disc space heights are maintained. Spinal canal is preserved. Lung apices s how no pneumothorax. Thyroid gland is normal in size. IMPRESSION: 1. There is no acute fracture or dislocation evident in the cervical spine. 2. No acute intracranial hemorrhage or midline shift is seen. 3. No acute displaced facial bone fracture. [facility], , 01/14/2025 11:47 PM
[2025-01-15] MEDS: CYCLOBENZAPRINE 10MG STARTER 3 TAB BTL PO STA (00:31)
[2025-01-15] MEDS: ACET/COD 300 MG/30 MG STARTER PACK 6 TAB BTL PO STA (00:31)
[2025-01-15] MEDS: ONDANSETRON 4 MG ODT STARTER PACK 2 TAB BTL PO STA (00:31)
[2025-01-15] MEDS: KETOROLAC 15 MG/ML 1 ML VIAL IM STA (00:36)
[2025-01-15] MEDS: MORPHINE SULFATE 4 MG/ML SYRINGE IM STA (00:37)
[2025-01-15 00:40] VITALS: BP 117/89; TEMP 97.7
== END 2025-01-15 01:00 | disposition home or self-care (01) ==
LOC: EC 21:55
DX: S09.90XA Unspecified injury of head, initial encounter (principal); M54.2 Cervicalgia; F17.290 Nicotine dependence, other tobacco product, uncomplicated; Z88.0 Allergy status to penicillin; Z88.1 Allergy status to other antibiotic agents; Z88.8 Allergy status to other drugs, medicaments and biological substances; W55.32XA Struck by other hoof stock, initial encounter; Y99.0 Civilian activity done for income or pay
CPT/HCPCS: 72125; 70486; 70450; 99284; 96372; J1885

== ENCOUNTER → 2025-05-21 | Outpatient (CLI) | payer OTHER ==
--- NOTE | 2025-05-21 08:36 | XR ---
EXAMINATION TYPE: XR knee complete RT DATE OF EXAM: 05/21/2025 8:30 AM COMPARISON: None. CLINICAL INDICATION: Female, 24 years old with history of S83.91XA SPRAIN OF UNSPECIFIED SITE OF RIGH T KNEE,, pain TECHNIQUE: XR knee complete RT views were obtained FINDINGS: There is no acute fracture/dislocation. The tri-compartment joint spaces appear within no rmal limits. The overlying soft tissue appears unremarkable. IMPRESSION: There is no acute fracture or dislocation.ICD 10 NO FRACTURE, INITIAL EVALUATION [facility], , 05/21/2025 8:34 AM
== END | disposition home or self-care (01) ==
LOC: RADXRMAIN 08:12
PROVIDERS: ATTEND Emergency Medicine
DX: S83.91XA Sprain of unspecified site of right knee, initial encounter (principal)

== ENCOUNTER → 2025-05-28 | Outpatient (CLI) | payer OTHER ==
--- NOTE | 2025-05-29 08:03 | MR ---
EXAMINATION TYPE: MR knee RT wo con DATE OF EXAM: 05/28/2025 COMPARISON: Right knee x-ray May 21, 2025 HISTORY: right knee pain with locking and swelling since May 12 2025 due to running injury. TECHNIQUE: Multiplanar, multisequence images of the knee is performed without IV contrast. FINDINGS: MEDIAL MENISCUS: Anterior and posterior horns are intact without tear. LATERAL MENISCUS: Anterior and posterior horns are intact without tear. CRUCIATE LIGAMENTS: The anterior and posterior cruciate ligaments are intact and unremarkable. COLLATERAL LIGAMENTS: The medial collateral ligament and lateral collateral ligament complex are inta ct and unremarkable. EXTENSOR MECHANISM: Visualized quadriceps and patellar tendons are intact. EFFUSION: Small size suprapatellar joint effusion. POPLITEAL CYST: No popliteal/joy cyst. TRICOMPARTMENT SPACES: Tricompartment joint spaces are preserved. No significant spurring is seen. CARTILAGE: Tricompartmental articular cartilage is maintained. BONE MARROW SIGNAL: Occasional tiny low dense lesion favors benign bone island. Small oval T2 hyperin tense lesion posterior aspect distal femur favors a nonaggressive etiology. OTHER: No meniscal or ligamentous tear is seen. IMPRESSION: [facility], , 05/29/2025 8:00 AM
== END | disposition home or self-care (01) ==
LOC: RADMRIMAIN 13:28
PROVIDERS: ATTEND Emergency Medicine
DX: S83.91XD Sprain of unspecified site of right knee, subsequent encounter (principal)

== ENCOUNTER → 2025-06-15 | Outpatient (CLI) | payer BC ==
[2025-06-15 10:08] LABS: HCT 40.9 % (37.2-46.3); HGB 13.2 g/dL (12.0-15.0); MCH 26.5 pg (27.0-32.0); MCHC 32.3 g/dL (32.0-37.0); MCV 82.0 FL (80.0-97.0); NRBC Per 100 WBC 0 X 10*3/uL (0.00-0.01); Platelet Count 400 X 10*3/uL (140-440); RBC 4.99 X 10*6/uL (4.10-5.20); RDW 14.7 % (11.5-14.5); WBC 7.27 X 10*3/uL (4.50-10.00)
[2025-06-15 10:09] LABS: Basophils # (A) 0.03 X 10*3/uL (0.00-0.10); Basophils % (A) 0.4 %; Eosinophils # (A) 0.06 X 10*3/uL (0.04-0.35); Eosinophils % (A) 0.8 %; Immature Grans, Automated 0.30 %; Lymphocytes # (A) 2.28 X 10*3/uL (0.90-5.00); Lymphocytes % (A) 31.4 %; Monocytes # (A) 0.40 X 10*3/uL (0.20-1.00); Monocytes % (A) 5.5 %; Neutrophils # (A) 4.48 X 10*3/uL (1.80-7.70); Neutrophils % (A) 61.6 %
[2025-06-15 10:29] LABS: Cholesterol 166.00 mg/dL (0.00-200.00); HDL Cholesterol 50.10 mg/dL (40.00-60.00); LDL Cholesterol,Calculated 89.9 mg/dL (0.0-131.0); Triglycerides 130.00 mg/dL (0.00-149.00); VLDL Calculation 26.00 mg/dL (5.00-40.00)
== END | disposition home or self-care (01) ==
LOC: LABWHC1 07:32
PROVIDERS: ATTEND Nurse Practitioner
DX: Z13.1 Encounter for screening for diabetes mellitus (principal); Z13.220 Encounter for screening for lipoid disorders; Z13.29 Encounter for screening for other suspected endocrine disorder
CPT/HCPCS: 36415; 80061; 83036; 83525; 84443; 85025